=== PATIENT | male | born 1935 | race Caucasian/White ===

== ENCOUNTER 2017-01-14 10:21 | Day surgery (SDC) | payer MEDICARE, OTHER ==
[2012-08-29 05:59] VITALS: BMI 23.8
--- NOTE | ~2017-01-14 | OP ---
PATIENT NAME: OMAR GREENWOOD MEDICAL RECORD: [id number] :37 LOCATION:[facility] ADMISSION DATE: SURGEON: AVRIL CAMACHO DO DATE OF OPERATION: 01/14/2017 PROCEDURE: EGD with biopsies. INDICATIONS FOR PROCEDURE: Epigastric abdominal pain, dysphagia, heartburn, abnormal weight loss. SCOPE: Olympus video gastroscope. MEDICATIONS: Propofol 150 mg IV per anesthesia. ESTIMATED BLOOD LOSS: Less than 2 mL. COMPLICATIONS: None. FINDINGS: Informed consent was given. The patient was made comfortable with the above medication. After reaching an adequate level of sedation by slow IV push, the patient was placed on his left side. The endoscope was then advanced under direct visualization through the mouth to the second portion of the duodenum. The upper, middle, and distal thirds of the esophagus appeared normal. At the GE junction, there was a mild schatzki ring, but the endoscope did pass easily prior to dilation. At the end of the procedure, a CRE artery balloon was passed through the endoscope and used to dilate the ring up to 18 mm diameter. The maneuver was successful. Just below the schatzki ring, there was a hiatal hernia involving the cardia and some LA class A moderate reflux induced esophagitis. Multiple biopsies were taken of this site at the GE junction. The endoscope was advanced through the GE junction into the stomach and retroflexed to view the cardia, where the hiatal hernia was present and visualized from below. This is a small sliding type hiatal hernia. There were multiple benign-appearing fundic gland type polyps in the fundus and body of the stomach. There was some streaky erythema throughout the distal body and antrum of the stomach. Random biopsies were taken to submit for histology and to rule out H. pylori. 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 There was also a single polyp, which was biopsied in the duodenum. The second portion of the duodenum appeared normal. The scope was withdrawn from the patient. The patient tolerated the procedure well and there were no complications. IMPRESSIONS: 1. Discharge home when recovery parameters are met. 2. Continue gastroesophageal reflux disease diet and reflux precautions. 3. Continue current medications, including omeprazole 40 mg daily. 4. Follow up biopsy specimen results. 5. Repeat EGD as needed for dysphagia. 6. Follow up in GI clinic as needed. TRANSINT:[id number] Voice Confirmation ID: [id number] DOCUMENT ID: [id number] OPERATIVE REPORT [id number] OMAR GREENWOOD NATHAN A DO CC: [id number] DICTATION DATE: 01/14/17 1330 DRUM FILLER: 01/14/17 2334 [facility] 01/14/17 [place] [id number]
[2017-01-14 11:32] LABS: BASOPHILS 0.2 % (0-2); EOSINOPHILS 0.8 % (0-7); HEMATOCRIT 44.6 % (42.0-54.0); HEMOGLOBIN 14.8 g/dL (13.5-17.5); IMMATURE GRANULOCYTES 0.5 % (0-5); LYMPHOCYTES 19.8 % (15-50); MCH 32.1 pg (26.0-34.0); MCHC 33.2 g/dL (31.0-37.0); MCV 96.7 fL (80.0-100.0); MONOCYTES 6.4 % (2-11); NEUTROPHILS 72.3 % (40-80); RBC 4.61 10x6/uL (4.20-6.10); RDW 14.1 % (11.5-14.5); WBC 13.3 10x3/uL (4.8-10.8)
[2017-01-14 11:36] LABS: PLATELET COUNT 132 10x3/uL (130-400)
[2017-01-14 11:44] LABS: ANION GAP 13.9 mmol/L (8-16); CALCIUM 8.5 mg/dL (8.5-10.1); CARBON DIOXIDE 25.5 mmol/L (21.0-32.0); CREATININE - SERUM 1.5 mg/dL (0.6-1.3); POTASSIUM - SERUM 4.4 mmol/L (3.5-5.1)
--- NOTE | 2017-01-14 13:16 | NUR ---
BALLOON DILATION 16 TO 18 TO 16 DONE.
--- NOTE | 2017-01-14 19:51 | NUR ---
1430 IV DC WITH CATHER TIP INTACT
== END 2017-01-14 14:45 | disposition home or self-care (01) ==
LOC: D.OPS 10:21
PROVIDERS: Anesthesiology
DX: K22.2 Esophageal obstruction (principal); K44.9 Diaphragmatic hernia without obstruction or gangrene; K21.0 Gastro-esophageal reflux disease with esophagitis; R13.10 Dysphagia, unspecified; R12 Heartburn; Z01.812 Encounter for preprocedural laboratory examination

== ENCOUNTER 2017-07-26 08:28 | Day surgery (SDC) | payer MEDICARE, OTHER ==
[~2017-07-26] VITALS: Ht 188 cm; Wt 81.8 kg
[2017-07-26] MEDS ORDERED: FUROSEMIDE20 MG PO (09:09)
[2017-07-26] MEDS ORDERED: ISOSORBIDE MONO30 M1 PO (09:09)
[2017-07-26] MEDS ORDERED: PLAVIX75 MG PO (09:09)
[2017-07-26] MEDS ORDERED: PEPCID40 MG PO (09:09)
[2017-07-26] MEDS ORDERED: ENTRESTO 49 MG1 EACH PO (09:10)
[2017-07-26] MEDS ORDERED: COREG 3.1253.125 MG PO (09:11)
[2017-07-26] MEDS ORDERED: LANOXIN125 MCG PO ×2 (09:12)
[2017-07-26] MEDS ORDERED: CRESTOR10 MG PO (09:13)
[2017-07-26] MEDS ORDERED: VITAMIN D31000 UNIT PO (09:13)
[2017-07-26] MEDS ORDERED: MELATONIN 3 MG1 TAB PO (09:13)
[2017-07-26] MEDS ORDERED: MULTIPLE VITAMI1 TA1 PO (09:14)
[2017-07-26 09:18] LABS: BASOPHILS 0.1 % (0-2); EOSINOPHILS 0.7 % (0-7); HEMATOCRIT 44.7 % (42.0-54.0); HEMOGLOBIN 15.3 g/dL (13.5-17.5); IMMATURE GRANULOCYTES 0.3 % (0-5); LYMPHOCYTES 21.9 % (15-50); MCH 31.2 pg (26.0-34.0); MCHC 34.2 g/dL (31.0-37.0); MCV 91.2 fL (80.0-100.0); MEAN PLATELET VOLUME 9.8 fL (7.4-10.4); MONOCYTES 8.1 % (2-11); NEUTROPHILS 68.9 % (40-80); PLATELET COUNT 143 10x3/uL (130-400); RDW 13.6 % (11.5-14.5); WBC 8.9 10x3/uL (4.8-10.8)
[2017-07-26 09:21] VITALS: BP 118/75; Ht 188 cm; Wt 81.8 kg
[2017-07-26 09:29] LABS: ANION GAP 3.6 mmol/L (8-16); CALCIUM 8.2 mg/dL (8.5-10.1); CARBON DIOXIDE 24.2 mmol/L (21.0-32.0); CREATININE - SERUM 1.3 mg/dL (0.6-1.3); POTASSIUM - SERUM 3.8 mmol/L (3.5-5.1)
--- NOTE | 2017-07-26 10:39 | NUR ---
1039-ESOPHAGEAL DILITATION TO 18 NAMIBIAN.
--- NOTE | 2017-07-26 11:16 | NUR ---
1100-RECD TO ROOM FROM GI LAB. ALERT. IV PATENT, VOVANGIE IN TO REPORT FINDINGS. 1115-FULL LIQUIDS SERVED
--- NOTE | 2017-07-26 11:52 | NUR ---
1130-UP TO BATHROOM, VOIDS. IV D/C 1140-DISCHARGE INSTRUCTION REVIEWED, GERD DIET HAND OUT GIVEN. PRESCRIPTION FOR OMEPRAZOLE GIVEN. 1145-D/C HOME VIA WHEELCHAIR TO PRIVATE AUTO WITH .
--- NOTE | 2017-08-05 10:48 | OP ---
PATIENT NAME: OMAR GREENWOOD MEDICAL RECORD: [id number] :37 [facility] AD[facility]ION DATE: SURGEON: AVRIL CAMACHO DO DATE OF OPERATION: 07/26/2017 PROCEDURE: EGD with balloon dilation and biopsies. SCOPE: Olympus video gastroscope. MEDICATIONS: Propofol 150 mg IV per anesthesia. ESTIMATED BLOOD LOSS: Minimal. COMPLICATIONS: None. FINDINGS: Informed consent was given. The patient was made comfortable with the above medication. After reaching an adequate level of sedation by slow IV push, the patient was placed on his left side. The endoscope was then advanced under direct visualization through the mouth to the second portion of the duodenum. The upper, middle, and lower thirds of the esophagus appeared normal. Just proximal to the GE junction, there was some minor esophageal stenosis noted. A CRE balloon was used to dilate the area without fluoroscopic guidance or guide wire insertion to 19 mm maximum diameter. The maneuver was successful. At the GE junction, there was some mild evidence of LA class A reflux-induced esophagitis. The endoscope was advanced beyond the GE junction into the stomach and retroflexed to view the cardia, where a hiatal hernia was present. Throughout the entire stomach, there were multiple benign-appearing fundic gland type polyps. There were patchy areas of erythema and granularity within the stomach consistent with possible gastritis. Random biopsies were taken. There was a specific area in the antrum with mucosal pattern. There was a difficult color in the surrounding tissue. This site measured approximately 1 to 1.5 cm x 2 to 3 cm. The area had some heaped up margins surrounding the site. Biopsies were taken of this site specifically to submit for histology. The endoscope was advanced beyond the pylorus into the duodenum where the bulb and second portion of the duodenum appeared normal. The endoscope was then withdrawn from the patient. The patient tolerated the procedure well and there were no complications. IMPRESSION: 1. LA class A reflux-induced esophagitis. 2. Esophageal stenosis, dilated to 19 mm. 3. Sliding type hiatal hernia involving the cardia. 4. Multiple benign appearing fundic gland type gastric polyps. 5. Possible gastritis. 6. Irregular mucosa within the gastric antrum, cold forceps biopsies taken. PLAN AND RECOMMENDATIONS: 1. Discharge home when recovery parameters are met. 2. Follow up biopsy specimen results. 3. GERD diet and reflux precautions. 4. Continue current medications. 5. Restart omeprazole 40 mg daily based on the patient's symptomatology. 6. Repeat EGD as needed for dysphagia or consider barium esophagram and/or manometry study. OPERATIVE REPORT [id number] OMAR GREENWOOD TRANSINT:[id number] Voice Confirmation ID: [id number] DOCUMENT ID: [id number] AVRIL CAMACHO DO at 1048 CC: [id number] DICTATION DATE: 07/26/17 1051 CUSTOMER ACQUISITION MANAGER: 07/26/17 1137 [facility] 07/26/17 [place] [id number] [place] [address]
== END 2017-07-26 11:45 | disposition home or self-care (01) ==
LOC: D.OPS 08:28
PROVIDERS: Anesthesiology
DX: R13.10 Dysphagia, unspecified (principal); R10.13 Epigastric pain; K21.0 Gastro-esophageal reflux disease with esophagitis; K22.2 Esophageal obstruction; K44.9 Diaphragmatic hernia without obstruction or gangrene; K31.7 Polyp of stomach and duodenum; G47.30 Sleep apnea, unspecified; I10 Essential (primary) hypertension; I50.9 Heart failure, unspecified; Z01.812 Encounter for preprocedural laboratory examination

== ENCOUNTER 2017-11-07 05:37 | Inpatient (IN) | payer MEDICARE, OTHER ==
[~2017-11-07] VITALS: Ht 188 cm; Wt 81.6 kg
[~2017-11-07 05:37] MED LIST: COREG 3.1253.125 MG PO; CRESTOR10 MG PO; ENTRESTO 49 MG1 EACH PO; FUROSEMIDE20 MG PO; ISOSORBIDE MONO30 M1 PO; LANOXIN125 MCG PO; MELATONIN 3 MG1 TAB PO; MULTIPLE VITAMI1 TA1 PO; PEPCID40 MG PO; PLAVIX75 MG PO; VITAMIN D31000 UNIT PO
[2017-11-07 06:14] LABS: BASOPHILS 0.1 % (0-2); EOSINOPHILS 0.1 % (0-7); HEMATOCRIT 44.8 % (42.0-54.0); HEMOGLOBIN 15.1 g/dL (13.5-17.5); IMMATURE GRANULOCYTES 0.4 % (0-5); LYMPHOCYTES 7.7 % (15-50); MCH 32.1 pg (26.0-34.0); MCHC 33.7 g/dL (31.0-37.0); MCV 95.1 fL (80.0-100.0); MEAN PLATELET VOLUME 9.9 fL (7.4-10.4); MONOCYTES 9.4 % (2-11); NEUTROPHILS 82.3 % (40-80); PLATELET COUNT 132 10x3/uL (130-400); RBC 4.71 10x6/uL (4.20-6.10); RDW 13.3 % (11.5-14.5); WBC 15.6 10x3/uL (4.8-10.8)
[2017-11-07 06:31] LABS: ANION GAP 12.5 mmol/L (8-16); BILIRUBIN - TOTAL 1.57 mg/dL (0.2-1.3); CALCIUM 7.8 mg/dL (8.5-10.1); CARBON DIOXIDE 25.6 mmol/L (21.0-32.0); CREATININE - SERUM 1.6 mg/dL (0.6-1.3); DIGOXIN 1.01 ng/mL (0.90-2.00); POTASSIUM - SERUM 4.1 mmol/L (3.5-5.1); PROTEIN - SERUM 6.6 g/dL (6.4-8.2)
[2017-11-07 08:35] LABS: APPEARANCE CLEAR (CLEAR); BILIRUBIN NEGATIVE (NEGATIVE); COLOR DK YELLOW (YELLOW); GLUCOSE NEGATIVE (NEGATIVE); KETONE NEGATIVE (NEGATIVE); NITRITE NEGATIVE (NEGATIVE); PROTEIN NEGATIVE (NEGATIVE); SPECIFIC GRAVITY 1.015 (1.005-1.020); UROBILINOGEN NORMAL (NORMAL)
[2017-11-07 08:37] LABS: BACTERIA FEW /hpf (NONE SEEN); MUCUS <1+ /lpf (NONE SEEN)
[2017-11-07 09:47] LABS: WHITE CELLS - URINE 0-5 /hpf (0-5)
[2017-11-07 09:48] LABS: RED CELLS - URINE 0-5 /hpf (0-5)
[2017-11-07] MEDS ORDERED: PAXIL10 MG PO (11:03)
[2017-11-07 11:12] VITALS: BP 115/59; BMI 23.1
[2017-11-07 16:18] VITALS: BP 122/69
[2017-11-07 20:41] VITALS: BP 125/72
[2017-11-08 00:50] VITALS: BP 114/56
[2017-11-08 04:49] VITALS: BP 102/72
[2017-11-08 04:59] LABS: BASOPHILS 0.2 % (0-2); EOSINOPHILS 1.1 % (0-7); HEMATOCRIT 39.3 % (42.0-54.0); HEMOGLOBIN 13.9 g/dL (13.5-17.5); IMMATURE GRANULOCYTES 0.2 % (0-5); LYMPHOCYTES 30.7 % (15-50); MCH 33.2 pg (26.0-34.0); MCHC 35.4 g/dL (31.0-37.0); MCV 93.8 fL (80.0-100.0); MEAN PLATELET VOLUME 10.3 fL (7.4-10.4); MONOCYTES 10.7 % (2-11); NEUTROPHILS 57.1 % (40-80); PLATELET COUNT 129 10x3/uL (130-400); RBC 4.19 10x6/uL (4.20-6.10); RDW 13.3 % (11.5-14.5)
[2017-11-08 05:07] LABS: WBC 5.3 10x3/uL (4.8-10.8)
[2017-11-08 05:11] LABS: INR 1.14 (0.85-1.17); PROTIME 14.2 SECONDS (11.6-15.0)
[2017-11-08 05:14] LABS: ANION GAP 12.9 mmol/L (8-16); CALCIUM 7.5 mg/dL (8.5-10.1); CARBON DIOXIDE 22.6 mmol/L (21.0-32.0); CREATININE - SERUM 1.4 mg/dL (0.6-1.3); POTASSIUM - SERUM 3.5 mmol/L (3.5-5.1)
[2017-11-08 08:19] VITALS: BP 116/71
[2017-11-08 13:21] VITALS: BP 91/54
[2017-11-08 15:14] VITALS: Ht 188 cm; Wt 81.6 kg
[2017-11-08 16:32] VITALS: BP 102/54
[2017-11-08 20:00] VITALS: BP 106/59
[2017-11-09] VITALS: BP 86/54
[2017-11-09 04:00] VITALS: BP 124/66
[2017-11-09 05:30] LABS: BASOPHILS 0 % (0-2); EOSINOPHILS 1.4 % (0-7); HEMATOCRIT 37.2 % (42.0-54.0); HEMOGLOBIN 12.5 g/dL (13.5-17.5); IMMATURE GRANULOCYTES 0.5 % (0-5); LYMPHOCYTES 23.3 % (15-50); MCH 31.1 pg (26.0-34.0); MCHC 33.6 g/dL (31.0-37.0); MCV 92.5 fL (80.0-100.0); MEAN PLATELET VOLUME 10.1 fL (7.4-10.4); MONOCYTES 12.2 % (2-11); NEUTROPHILS 62.6 % (40-80); PLATELET COUNT 139 10x3/uL (130-400); RBC 4.02 10x6/uL (4.20-6.10); RDW 13.2 % (11.5-14.5); WBC 6.5 10x3/uL (4.8-10.8)
[2017-11-09 06:05] LABS: ANION GAP 13.3 mmol/L (8-16); CALCIUM 7.5 mg/dL (8.5-10.1); CARBON DIOXIDE 22.4 mmol/L (21.0-32.0); CREATININE - SERUM 1.3 mg/dL (0.6-1.3); POTASSIUM - SERUM 3.7 mmol/L (3.5-5.1)
[2017-11-09 08:11] VITALS: BP 126/64
[2017-11-09 09:16] LABS: HEPATITIS C ANTIBODY <0.1 (0.0-0.9)
[2017-11-09 16:09] VITALS: BP 122/76
[2017-11-09 20:00] VITALS: BP 149/44
[2017-11-10 04:00] VITALS: BP 149/82
[2017-11-10 05:10] LABS: BASOPHILS 0.1 % (0-2); EOSINOPHILS 1.1 % (0-7); HEMATOCRIT 40.5 % (42.0-54.0); HEMOGLOBIN 13.9 g/dL (13.5-17.5); IMMATURE GRANULOCYTES 0.3 % (0-5); LYMPHOCYTES 23.1 % (15-50); MCH 31.7 pg (26.0-34.0); MCHC 34.3 g/dL (31.0-37.0); MCV 92.5 fL (80.0-100.0); MONOCYTES 9.8 % (2-11); NEUTROPHILS 65.6 % (40-80); PLATELET COUNT 147 10x3/uL (130-400); RBC 4.38 10x6/uL (4.20-6.10); WBC 7.1 10x3/uL (4.8-10.8)
[2017-11-10 05:36] LABS: ALBUMIN 2.7 g/dL (3.4-5.0); ANION GAP 10.3 mmol/L (8-16); BILIRUBIN - TOTAL 0.46 mg/dL (0.2-1.3); CARBON DIOXIDE 26.4 mmol/L (21.0-32.0); CREATININE - SERUM 1.3 mg/dL (0.6-1.3); POTASSIUM - SERUM 3.7 mmol/L (3.5-5.1)
[2017-11-10 08:07] VITALS: BP 144/81
[2017-11-10 15:44] VITALS: BP 136/74
[2017-11-10 21:24] VITALS: BP 149/62
[2017-11-11 01:24] VITALS: BP 136/73
[2017-11-11 04:04] VITALS: BP 153/94
[2017-11-11 04:17] VITALS: BP 153/94
[2017-11-11 06:56] LABS: BASOPHILS 0.1 % (0-2); HEMATOCRIT 41.9 % (42.0-54.0); HEMOGLOBIN 14.7 g/dL (13.5-17.5); IMMATURE GRANULOCYTES 0.3 % (0-5); LYMPHOCYTES 20.7 % (15-50); MCH 32.4 pg (26.0-34.0); MCHC 35.1 g/dL (31.0-37.0); MCV 92.3 fL (80.0-100.0); MONOCYTES 8.3 % (2-11); NEUTROPHILS 69.6 % (40-80); RBC 4.54 10x6/uL (4.20-6.10); RDW 13.1 % (11.5-14.5); WBC 8.7 10x3/uL (4.8-10.8)
[2017-11-11 06:57] LABS: PLATELET COUNT 207 10x3/uL (130-400)
[2017-11-11 07:04] LABS: ANION GAP 12.2 mmol/L (8-16); CALCIUM 7.8 mg/dL (8.5-10.1); CARBON DIOXIDE 27.8 mmol/L (21.0-32.0); CREATININE - SERUM 1.2 mg/dL (0.6-1.3)
[2017-11-11 11:41] VITALS: BP 153/78
[2017-11-11 17:26] VITALS: BP 156/85
[2017-11-11] MEDS ORDERED: FLORAJEN3 CAPS460 MG PO (17:31)
[2017-11-11] MEDS ORDERED: VANCOMYCIN250 MG/51 PO (17:32)
[2017-11-11] MEDS ORDERED: FLAGYL500 MG PO (17:32)
== END 2017-11-11 18:04 | disposition home or self-care (01) | DRG 872 ==
LOC: D.ER 05:37 → D.EDHOLD 09:56 → D.MS 09:56
PROVIDERS: Emergency Medicine; Internal Medicine Gastroenterology; Internal Medicine Nephrology
PROC: 3E0G8GC Introduction of Other Therapeutic Substance into Upper GI, Via Natural or Artificial Opening Endoscopic (ICD-10-PCS; principal; 2017-11-11 14:00)
PROC: 0D748ZZ Dilation of Esophagogastric Junction, Via Natural or Artificial Opening Endoscopic (ICD-10-PCS; 2017-11-11 14:00)
DX: A41.9 Sepsis, unspecified organism (principal); A04.71 Enterocolitis due to Clostridium difficile, recurrent; N17.9 Acute kidney failure, unspecified; E86.0 Dehydration; I10 Essential (primary) hypertension; E80.6 Other disorders of bilirubin metabolism; Z95.810 Presence of automatic (implantable) cardiac defibrillator; K31.7 Polyp of stomach and duodenum; R13.10 Dysphagia, unspecified

== ENCOUNTER 2017-11-26 00:15 | Inpatient (IN) | payer MEDICARE, OTHER ==
[~2017-11-26] VITALS: Ht 188 cm; Wt 77.1 kg
[~2017-11-26 00:15] MED LIST changes: +FLAGYL500 MG PO; +FLORAJEN3 CAPS460 MG PO; +PAXIL10 MG PO; +VANCOMYCIN250 MG/51 PO
[2017-11-26 01:02] LABS: BASOPHILS 0.1 % (0-2); EOSINOPHILS 0.2 % (0-7); HEMATOCRIT 41.5 % (42.0-54.0); HEMOGLOBIN 14.1 g/dL (13.5-17.5); IMMATURE GRANULOCYTES 0.3 % (0-5); LYMPHOCYTES 13.5 % (15-50); MCH 32.2 pg (26.0-34.0); MCV 94.7 fL (80.0-100.0); MEAN PLATELET VOLUME 9.8 fL (7.4-10.4); MONOCYTES 8.6 % (2-11); NEUTROPHILS 77.3 % (40-80); RBC 4.38 10x6/uL (4.20-6.10); RDW 13.2 % (11.5-14.5); WBC 10.1 10x3/uL (4.8-10.8)
[2017-11-26 01:04] LABS: PLATELET COUNT 165 10x3/uL (130-400)
[2017-11-26 01:15] LABS: ALBUMIN 2.8 g/dL (3.4-5.0); ANION GAP 9.5 mmol/L (8-16); BILIRUBIN - TOTAL 0.7 mg/dL (0.2-1.3); CALCIUM 7.9 mg/dL (8.5-10.1); CARBON DIOXIDE 25.4 mmol/L (21.0-32.0); CREATININE - SERUM 1.5 mg/dL (0.6-1.3); POTASSIUM - SERUM 3.9 mmol/L (3.5-5.1); PROTEIN - SERUM 6.3 g/dL (6.4-8.2)
[2017-11-26] MEDS ORDERED: OMEPRAZOLE40 MG PO (03:57)
[2017-11-26] MEDS ORDERED: GLUCOSAMINE & C1 CAP PO (04:16)
[2017-11-26 06:20] LABS: APPEARANCE CLEAR (CLEAR); BACTERIA FEW /hpf (NONE SEEN); BILIRUBIN NEGATIVE (NEGATIVE); COLOR YELLOW (YELLOW); EPITHELIAL CELLS RARE /hpf (0-5); GLUCOSE NEGATIVE (NEGATIVE); KETONE NEGATIVE (NEGATIVE); NITRITE NEGATIVE (NEGATIVE); PROTEIN NEGATIVE (NEGATIVE); RED CELLS - URINE OCC /hpf (0-5); SPECIFIC GRAVITY 1.015 (1.005-1.020); UROBILINOGEN NORMAL (NORMAL); WHITE CELLS - URINE RARE /hpf (0-5)
[2017-11-26 06:32] VITALS: BP 133/76; BMI 21.8
[2017-11-26 08:37] VITALS: BP 108/65
[2017-11-26 12:43] VITALS: BP 113/69
[2017-11-26 14:10] VITALS: Ht 188 cm; Wt 77.1 kg
[2017-11-26 16:34] VITALS: BP 115/63
[2017-11-26 20:08] VITALS: BP 103/59
[2017-11-27 04:36] VITALS: BP 124/87
[2017-11-27 09:09] VITALS: BP 126/75
[2017-11-27 12:30] VITALS: BP 103/55
[2017-11-27 15:58] VITALS: BP 97/56
[2017-11-27 20:00] VITALS: BP 95/53
[2017-11-28] VITALS: BP 106/60
[2017-11-28 04:00] VITALS: BP 122/70
[2017-11-28 08:57] VITALS: BP 125/67
[2017-11-28 12:22] VITALS: BP 130/70
[2017-11-28] MEDS ORDERED: FLAGYL500 MG PO (14:19)
== END 2017-11-28 17:10 | disposition home or self-care (01) | DRG 372 ==
LOC: D.ER 00:15 → D.EDHOLD 01:50 → D.MS 01:50
PROVIDERS: Emergency Medicine
DX: A04.71 Enterocolitis due to Clostridium difficile, recurrent (principal); N17.9 Acute kidney failure, unspecified; I10 Essential (primary) hypertension; I25.10 Atherosclerotic heart disease of native coronary artery without angina pectoris; I71.4 Abdominal aortic aneurysm, without rupture; Z95.810 Presence of automatic (implantable) cardiac defibrillator

== ENCOUNTER 2017-12-02 11:20 | Day surgery (SDC) | payer MEDICARE, OTHER ==
[~2017-12-02] VITALS: Ht 188 cm; Wt 76.4 kg
--- NOTE | ~2017-12-02 | OP ---
PATIENT NAME: OMAR GREENWOOD MEDICAL RECORD: [id number] :37 [facility] AD[facility] DATE: SURGEON: AVRIL CAMACHO DO DATE OF OPERATION: 12/02/2017 PROCEDURE: EGD with enteroscopy and fecal microbiota transplant. INDICATIONS FOR PROCEDURE: Recurrent C. difficile infection. SCOPE: Doutor Recomenda video gastroscope. MEDICATIONS: Propofol 150 mg IV per anesthesia. ESTIMATED BLOOD LOSS: None. COMPLICATIONS: None. FINDINGS: Informed consent was given. The patient was made comfortable with the above medication. After reaching an adequate level of sedation by slow IV push, the patient was placed on his left side. The endoscope was then advanced under direct visualization through the mouth down to the proximal jejunum. Once the scope was at its maximal extent of advancement, 60 mL of OpenBiome stool was instilled through the endoscope into the small bowel. This was followed by approximately 100 mL of normal saline to clear the working channel of the endoscope of the stool. The endoscope was then withdrawn from the patient. The patient tolerated the procedure well and there were no complications. IMPRESSION: Recurrent Clostridium difficile infection, status post EGD with fecal microbiota transplant. PLAN AND RECOMMENDATIONS: 1. Discharge home when recovery parameters are met. 2. Continue current diet. 3. Continue current medications including Dificid until completed. 4. Follow up in GI clinic in a couple of months or sooner if needed to make sure symptoms have resolved and there is no longer signs of infection or colitis. TRANSINT:[id number] Voice Confirmation ID: [id number] DOCUMENT ID: [id number] AVRIL CAMACHO DO at 0911 CC: [id number] DICTATION DATE: 12/02/17 1511 BINDING FOLDER MACHINE: 12/02/17 1546 [facility] 12/02/17 [place] [address]
[~2017-12-02 11:20] MED LIST changes: +GLUCOSAMINE & C1 CAP PO; +OMEPRAZOLE40 MG PO
[2017-12-02 12:22] LABS: BASOPHILS 0.1 % (0-2); EOSINOPHILS 1.2 % (0-7); HEMATOCRIT 42.2 % (42.0-54.0); HEMOGLOBIN 14.4 g/dL (13.5-17.5); IMMATURE GRANULOCYTES 0.5 % (0-5); LYMPHOCYTES 28.5 % (15-50); MCH 31.8 pg (26.0-34.0); MCHC 34.1 g/dL (31.0-37.0); MCV 93.2 fL (80.0-100.0); MONOCYTES 7.6 % (2-11); NEUTROPHILS 62.1 % (40-80); PLATELET COUNT 169 10x3/uL (130-400); RBC 4.53 10x6/uL (4.20-6.10); RDW 13.1 % (11.5-14.5); WBC 8.2 10x3/uL (4.8-10.8)
[2017-12-02 12:32] LABS: ANION GAP 15.9 mmol/L (8-16); CALCIUM 8.2 mg/dL (8.5-10.1); CARBON DIOXIDE 24.9 mmol/L (21.0-32.0); CREATININE - SERUM 1.2 mg/dL (0.6-1.3); POTASSIUM - SERUM 3.8 mmol/L (3.5-5.1)
[2017-12-02 13:23] VITALS: BP 120/70; Ht 188 cm; Wt 76.4 kg
== END 2017-12-02 16:05 | disposition home or self-care (01) ==
LOC: D.OPS 11:20
PROVIDERS: Anesthesiology
DX: A04.71 Enterocolitis due to Clostridium difficile, recurrent (principal); Z01.812 Encounter for preprocedural laboratory examination

== ENCOUNTER 2017-12-05 14:20 | Inpatient (IN) | payer MEDICARE, OTHER ==
[~2017-12-05] VITALS: Ht 188 cm; Wt 75.9 kg
[2017-12-05] MEDS ORDERED: DIFICID PO (15:36)
[2017-12-05 17:16] VITALS: BP 123/70; BMI 21.6
[2017-12-05 20:00] VITALS: BP 100/60
[2017-12-06] VITALS: BP 100/64
[2017-12-06 04:00] VITALS: BP 124/74
[2017-12-06 06:19] LABS: BASOPHILS 0.2 % (0-2); EOSINOPHILS 1.3 % (0-7); HEMATOCRIT 41.7 % (42.0-54.0); HEMOGLOBIN 14.3 g/dL (13.5-17.5); IMMATURE GRANULOCYTES 0.3 % (0-5); LYMPHOCYTES 21.6 % (15-50); MCH 31.2 pg (26.0-34.0); MCHC 34.3 g/dL (31.0-37.0); MCV 90.8 fL (80.0-100.0); MEAN PLATELET VOLUME 9.9 fL (7.4-10.4); MONOCYTES 6.8 % (2-11); NEUTROPHILS 69.8 % (40-80); PLATELET COUNT 162 10x3/uL (130-400); RBC 4.59 10x6/uL (4.20-6.10); RDW 12.9 % (11.5-14.5); WBC 11.1 10x3/uL (4.8-10.8)
[2017-12-06 06:57] LABS: ALBUMIN 2.5 g/dL (3.4-5.0); ANION GAP 13.5 mmol/L (8-16); BILIRUBIN - TOTAL 0.6 mg/dL (0.2-1.3); CALCIUM 7.7 mg/dL (8.5-10.1); CARBON DIOXIDE 26.1 mmol/L (21.0-32.0); CREATININE - SERUM 1.2 mg/dL (0.6-1.3); POTASSIUM - SERUM 3.6 mmol/L (3.5-5.1)
[2017-12-06 09:17] VITALS: BP 137/74
[2017-12-06 10:44] VITALS: BP 135/78
[2017-12-06 14:13] VITALS: Ht 188 cm; Wt 75.9 kg
[2017-12-06 15:17] VITALS: BP 136/71
[2017-12-06 20:49] VITALS: BP 97/65
[2017-12-07 01:03] VITALS: BP 133/76
[2017-12-07 05:01] VITALS: BP 128/77
[2017-12-07 06:53] LABS: BASOPHILS 0.2 % (0-2); HEMATOCRIT 42.1 % (42.0-54.0); HEMOGLOBIN 14.6 g/dL (13.5-17.5); IMMATURE GRANULOCYTES 0.2 % (0-5); LYMPHOCYTES 18.5 % (15-50); MCH 31.7 pg (26.0-34.0); MCHC 34.7 g/dL (31.0-37.0); MCV 91.3 fL (80.0-100.0); MEAN PLATELET VOLUME 9.8 fL (7.4-10.4); MONOCYTES 8.1 % (2-11); PLATELET COUNT 156 10x3/uL (130-400); RBC 4.61 10x6/uL (4.20-6.10); RDW 12.9 % (11.5-14.5); WBC 12.7 10x3/uL (4.8-10.8)
[2017-12-07 07:30] LABS: ALBUMIN 2.6 g/dL (3.4-5.0); ANION GAP 12.9 mmol/L (8-16); BILIRUBIN - TOTAL 0.5 mg/dL (0.2-1.3); CALCIUM 8.2 mg/dL (8.5-10.1); CARBON DIOXIDE 25.6 mmol/L (21.0-32.0); CREATININE - SERUM 1.2 mg/dL (0.6-1.3); POTASSIUM - SERUM 3.5 mmol/L (3.5-5.1); PROTEIN - SERUM 6.2 g/dL (6.4-8.2)
[2017-12-07 07:46] VITALS: BP 132/68
[2017-12-07 10:36] VITALS: BP 123/71
[2017-12-07 16:15] VITALS: BP 120/68
[2017-12-07 20:00] VITALS: BP 120/66
[2017-12-08] VITALS: BP 94/62
[2017-12-08 04:00] VITALS: BP 137/72
[2017-12-08 06:05] LABS: BASOPHILS 0.1 % (0-2); EOSINOPHILS 1.6 % (0-7); IMMATURE GRANULOCYTES 0.2 % (0-5); LYMPHOCYTES 25.9 % (15-50); MCH 31.5 pg (26.0-34.0); MCHC 34.1 g/dL (31.0-37.0); MCV 92.1 fL (80.0-100.0); MEAN PLATELET VOLUME 10.1 fL (7.4-10.4); MONOCYTES 7.1 % (2-11); NEUTROPHILS 65.1 % (40-80); PLATELET COUNT 134 10x3/uL (130-400); RBC 4.45 10x6/uL (4.20-6.10); RDW 12.9 % (11.5-14.5)
[2017-12-08 06:07] LABS: WBC 8.9 10x3/uL (4.8-10.8)
[2017-12-08 06:09] LABS: ALBUMIN 2.5 g/dL (3.4-5.0); ANION GAP 13.3 mmol/L (8-16); BILIRUBIN - TOTAL 0.4 mg/dL (0.2-1.3); CALCIUM 7.9 mg/dL (8.5-10.1); CARBON DIOXIDE 23.5 mmol/L (21.0-32.0); CREATININE - SERUM 1.2 mg/dL (0.6-1.3); POTASSIUM - SERUM 3.8 mmol/L (3.5-5.1); PROTEIN - SERUM 5.5 g/dL (6.4-8.2)
[2017-12-08 08:53] VITALS: BP 141/72
[2017-12-08 12:36] VITALS: BP 113/66
[2017-12-08 15:38] VITALS: BP 143/79
[2017-12-08 21:12] VITALS: BP 154/87
[2017-12-09 01:46] VITALS: BP 145/82
[2017-12-09 05:05] VITALS: BP 146/85
[2017-12-09 06:29] LABS: BASOPHILS 0.1 % (0-2); EOSINOPHILS 2.1 % (0-7); IMMATURE GRANULOCYTES 0.3 % (0-5); LYMPHOCYTES 30.9 % (15-50); MCH 31.2 pg (26.0-34.0); MCHC 34.1 g/dL (31.0-37.0); MCV 91.5 fL (80.0-100.0); MEAN PLATELET VOLUME 9.9 fL (7.4-10.4); MONOCYTES 9.2 % (2-11); NEUTROPHILS 57.4 % (40-80); PLATELET COUNT 157 10x3/uL (130-400); RBC 4.81 10x6/uL (4.20-6.10); RDW 12.7 % (11.5-14.5); WBC 7.9 10x3/uL (4.8-10.8)
[2017-12-09 06:53] LABS: ALBUMIN 2.6 g/dL (3.4-5.0); ANION GAP 16.2 mmol/L (8-16); BILIRUBIN - TOTAL 0.55 mg/dL (0.2-1.3); CALCIUM 8.2 mg/dL (8.5-10.1); CARBON DIOXIDE 21.6 mmol/L (21.0-32.0); CREATININE - SERUM 1.1 mg/dL (0.6-1.3); POTASSIUM - SERUM 3.8 mmol/L (3.5-5.1); PROTEIN - SERUM 5.7 g/dL (6.4-8.2)
[2017-12-09 08:23] VITALS: BP 157/83
[2017-12-09 11:48] VITALS: BP 118/69
[2017-12-13 07:10] LABS: OVA + PARASITE EXAM Final report (())
== END 2017-12-09 17:12 | disposition home or self-care (01) | DRG 373 ==
LOC: D.SDCHOLD 14:20 → D.M2 14:44
PROVIDERS: Internal Medicine Gastroenterology; Internal Medicine Nephrology
PROC: 0DBE8ZX Excision of Large Intestine, Via Natural or Artificial Opening Endoscopic, Diagnostic (ICD-10-PCS; 2017-12-09)
PROC: 0DBL8ZX Excision of Transverse Colon, Via Natural or Artificial Opening Endoscopic, Diagnostic (ICD-10-PCS; 2017-12-09)
PROC: 0DBN8ZX Excision of Sigmoid Colon, Via Natural or Artificial Opening Endoscopic, Diagnostic (ICD-10-PCS; 2017-12-09)
PROC: 0DBM8ZX Excision of Descending Colon, Via Natural or Artificial Opening Endoscopic, Diagnostic (ICD-10-PCS; 2017-12-09)
PROC: 0DBH8ZX Excision of Cecum, Via Natural or Artificial Opening Endoscopic, Diagnostic (ICD-10-PCS; 2017-12-09)
PROC: 0DBK8ZX Excision of Ascending Colon, Via Natural or Artificial Opening Endoscopic, Diagnostic (ICD-10-PCS; principal; 2017-12-09 07:30)
DX: A04.71 Enterocolitis due to Clostridium difficile, recurrent (principal); I10 Essential (primary) hypertension; Z86.73 Personal history of transient ischemic attack (TIA), and cerebral infarction without residual deficits; Z95.810 Presence of automatic (implantable) cardiac defibrillator; K21.9 Gastro-esophageal reflux disease without esophagitis; F32.9 Major depressive disorder, single episode, unspecified; F41.9 Anxiety disorder, unspecified

== ENCOUNTER 2017-12-10 14:48 | Inpatient (IN) | payer MEDICARE, OTHER ==
[~2017-12-10] VITALS: Ht 188 cm; Wt 76.2 kg
[~2017-12-10 14:48] MED LIST changes: +DIFICID PO
[2017-12-10 15:39] LABS: BASOPHILS 0.1 % (0-2); EOSINOPHILS 1.2 % (0-7); HEMATOCRIT 43.7 % (42.0-54.0); HEMOGLOBIN 14.7 g/dL (13.5-17.5); IMMATURE GRANULOCYTES 0.3 % (0-5); LYMPHOCYTES 26.5 % (15-50); MCH 31.1 pg (26.0-34.0); MCHC 33.6 g/dL (31.0-37.0); MCV 92.4 fL (80.0-100.0); MEAN PLATELET VOLUME 9.9 fL (7.4-10.4); MONOCYTES 9.7 % (2-11); NEUTROPHILS 62.2 % (40-80); PLATELET COUNT 152 10x3/uL (130-400); RBC 4.73 10x6/uL (4.20-6.10); RDW 12.9 % (11.5-14.5); WBC 7.6 10x3/uL (4.8-10.8)
[2017-12-10 15:52] LABS: ANION GAP 11.8 mmol/L (8-16); BILIRUBIN - TOTAL 0.6 mg/dL (0.2-1.3); CARBON DIOXIDE 25.9 mmol/L (21.0-32.0); POTASSIUM - SERUM 3.7 mmol/L (3.5-5.1); PROTEIN - SERUM 6.2 g/dL (6.4-8.2)
[2017-12-10 15:55] LABS: CREATININE - SERUM 1.5 mg/dL (0.6-1.3)
[2017-12-10 17:07] LABS: APPEARANCE CLEAR (CLEAR); BILIRUBIN NEGATIVE (NEGATIVE); COLOR YELLOW (YELLOW); GLUCOSE NEGATIVE (NEGATIVE); KETONE NEGATIVE (NEGATIVE); NITRITE NEGATIVE (NEGATIVE); PROTEIN NEGATIVE (NEGATIVE); SPECIFIC GRAVITY 1.015 (1.005-1.020); UROBILINOGEN NORMAL (NORMAL)
[2017-12-10 23:29] VITALS: BP 133/68
[2017-12-11 02:39] VITALS: BP 168/79; BMI 21.6
[2017-12-11 04:22] VITALS: BP 122/71
[2017-12-11 05:28] LABS: BASOPHILS 0.1 % (0-2); EOSINOPHILS 1.9 % (0-7); HEMATOCRIT 41.8 % (42.0-54.0); HEMOGLOBIN 14.4 g/dL (13.5-17.5); IMMATURE GRANULOCYTES 0.2 % (0-5); LYMPHOCYTES 21.1 % (15-50); MCH 31.6 pg (26.0-34.0); MCHC 34.4 g/dL (31.0-37.0); MCV 91.9 fL (80.0-100.0); MONOCYTES 8.9 % (2-11); NEUTROPHILS 67.8 % (40-80); PLATELET COUNT 140 10x3/uL (130-400); RBC 4.55 10x6/uL (4.20-6.10); RDW 12.6 % (11.5-14.5)
[2017-12-11 05:36] LABS: WBC 9.7 10x3/uL (4.8-10.8)
[2017-12-11 06:11] LABS: ALBUMIN 2.4 g/dL (3.4-5.0); ANION GAP 12.5 mmol/L (8-16); BILIRUBIN - TOTAL 0.6 mg/dL (0.2-1.3); CALCIUM 7.9 mg/dL (8.5-10.1); CARBON DIOXIDE 22.9 mmol/L (21.0-32.0); CREATININE - SERUM 1.2 mg/dL (0.6-1.3); POTASSIUM - SERUM 3.4 mmol/L (3.5-5.1); PROTEIN - SERUM 5.9 g/dL (6.4-8.2)
[2017-12-11 09:30] VITALS: BP 146/77
[2017-12-11 13:40] VITALS: BP 127/88
[2017-12-11 14:27] VITALS: Ht 188 cm; Wt 76.2 kg
[2017-12-11 16:00] VITALS: BP 148/89
[2017-12-11 20:00] VITALS: BP 116/63
[2017-12-12 05:20] LABS: BASOPHILS 0.3 % (0-2); EOSINOPHILS 1.9 % (0-7); HEMATOCRIT 40.5 % (42.0-54.0); HEMOGLOBIN 13.7 g/dL (13.5-17.5); IMMATURE GRANULOCYTES 0.1 % (0-5); LYMPHOCYTES 25.8 % (15-50); MCH 30.9 pg (26.0-34.0); MCHC 33.8 g/dL (31.0-37.0); MCV 91.4 fL (80.0-100.0); MEAN PLATELET VOLUME 10.2 fL (7.4-10.4); MONOCYTES 9.1 % (2-11); NEUTROPHILS 62.8 % (40-80); PLATELET COUNT 131 10x3/uL (130-400); RBC 4.43 10x6/uL (4.20-6.10); RDW 12.6 % (11.5-14.5); WBC 7.9 10x3/uL (4.8-10.8)
[2017-12-12 05:50] LABS: ALBUMIN 2.4 g/dL (3.4-5.0); ANION GAP 13.6 mmol/L (8-16); BILIRUBIN - TOTAL 0.4 mg/dL (0.2-1.3); CALCIUM 7.7 mg/dL (8.5-10.1); CARBON DIOXIDE 22.1 mmol/L (21.0-32.0); CREATININE - SERUM 1.1 mg/dL (0.6-1.3); POTASSIUM - SERUM 3.7 mmol/L (3.5-5.1); PROTEIN - SERUM 5.4 g/dL (6.4-8.2)
[2017-12-12 09:27] VITALS: BP 150/76
[2017-12-12 13:40] VITALS: BP 113/69
[2017-12-12 20:00] VITALS: BP 124/71
[2017-12-13 04:00] VITALS: BP 144/78
[2017-12-13 05:42] LABS: BASOPHILS 0.1 % (0-2); EOSINOPHILS 1.6 % (0-7); HEMATOCRIT 38.6 % (42.0-54.0); HEMOGLOBIN 13.5 g/dL (13.5-17.5); IMMATURE GRANULOCYTES 0.1 % (0-5); LYMPHOCYTES 22.3 % (15-50); MCH 31.3 pg (26.0-34.0); MCV 89.6 fL (80.0-100.0); MEAN PLATELET VOLUME 10.5 fL (7.4-10.4); MONOCYTES 8.4 % (2-11); NEUTROPHILS 67.5 % (40-80); PLATELET COUNT 150 10x3/uL (130-400); RBC 4.31 10x6/uL (4.20-6.10); RDW 12.5 % (11.5-14.5); WBC 8.3 10x3/uL (4.8-10.8)
[2017-12-13 06:13] LABS: ALBUMIN 2.3 g/dL (3.4-5.0); ALKALINE PHOSPHATASE 62 U/L (46-116); ALT (SGPT) 27 U/L (10-68); CALC OSMOLALITY 277 mosm/kg (275-300); CALCIUM 7.9 mg/dL (8.5-10.1); CARBON DIOXIDE 19.3 mmol/L (21.0-32.0); CHLORIDE - SERUM 110 mmol/L (98-107); GLUCOSE 104 mg/dL (74-106); POTASSIUM - SERUM 3.6 mmol/L (3.5-5.1); PROTEIN - SERUM 5.8 g/dL (6.4-8.2); SODIUM 140 mmol/L (136-145); UREA NITROGEN 10 mg/dL (7-18); eGFR NON AFRICAN AMERICAN 76 mL/min (90-120)
[2017-12-13 09:23] VITALS: BP 138/84
[2017-12-13 14:42] VITALS: BP 117/72
[2017-12-13 17:59] VITALS: BP 137/84
[2017-12-13 21:36] VITALS: BP 129/79
[2017-12-14 04:54] VITALS: BP 132/81
[2017-12-14 06:08] LABS: BASOPHILS 0.2 % (0-2); EOSINOPHILS 1.3 % (0-7); HEMATOCRIT 40.1 % (42.0-54.0); HEMOGLOBIN 13.9 g/dL (13.5-17.5); IMMATURE GRANULOCYTES 0.2 % (0-5); LYMPHOCYTES 17.9 % (15-50); MCH 31.2 pg (26.0-34.0); MCHC 34.7 g/dL (31.0-37.0); MCV 89.9 fL (80.0-100.0); MEAN PLATELET VOLUME 10.3 fL (7.4-10.4); MONOCYTES 8.3 % (2-11); NEUTROPHILS 72.1 % (40-80); PLATELET COUNT 143 10x3/uL (130-400); RBC 4.46 10x6/uL (4.20-6.10); RDW 12.5 % (11.5-14.5); WBC 9.3 10x3/uL (4.8-10.8)
[2017-12-14 06:56] LABS: ALBUMIN 2.3 g/dL (3.4-5.0); ALKALINE PHOSPHATASE 55 U/L (46-116); ALT (SGPT) 29 U/L (10-68); BILIRUBIN - TOTAL 0.43 mg/dL (0.2-1.3); CALC OSMOLALITY 278 mosm/kg (275-300); CALCIUM 7.8 mg/dL (8.5-10.1); CHLORIDE - SERUM 108 mmol/L (98-107); GLUCOSE 108 mg/dL (74-106); POTASSIUM - SERUM 3.2 mmol/L (3.5-5.1); PROTEIN - SERUM 5.8 g/dL (6.4-8.2); SODIUM 140 mmol/L (136-145); UREA NITROGEN 10 mg/dL (7-18); eGFR NON AFRICAN AMERICAN 76 mL/min (90-120)
[2017-12-14 08:14] VITALS: BP 145/77
[2017-12-14 12:39] VITALS: BP 125/62
[2017-12-14 16:15] VITALS: BP 122/64; BP 144/49
[2017-12-14 20:06] VITALS: BP 122/73
[2017-12-15 04:30] VITALS: BP 144/64
[2017-12-15 05:58] LABS: BASOPHILS 0.1 % (0-2); EOSINOPHILS 1.3 % (0-7); HEMATOCRIT 39.8 % (42.0-54.0); HEMOGLOBIN 13.9 g/dL (13.5-17.5); IMMATURE GRANULOCYTES 0.2 % (0-5); LYMPHOCYTES 20.9 % (15-50); MCH 31.2 pg (26.0-34.0); MCHC 34.9 g/dL (31.0-37.0); MCV 89.2 fL (80.0-100.0); MEAN PLATELET VOLUME 10.3 fL (7.4-10.4); MONOCYTES 9.4 % (2-11); NEUTROPHILS 68.1 % (40-80); PLATELET COUNT 151 10x3/uL (130-400); RBC 4.46 10x6/uL (4.20-6.10); RDW 12.5 % (11.5-14.5); WBC 8.6 10x3/uL (4.8-10.8)
[2017-12-15 06:10] LABS: ALBUMIN 2.3 g/dL (3.4-5.0); ALKALINE PHOSPHATASE 64 U/L (46-116); ALT (SGPT) 29 U/L (10-68); CALC OSMOLALITY 278 mosm/kg (275-300); CALCIUM 7.9 mg/dL (8.5-10.1); CHLORIDE - SERUM 108 mmol/L (98-107); GLUCOSE 110 mg/dL (74-106); POTASSIUM - SERUM 3.3 mmol/L (3.5-5.1); PROTEIN - SERUM 5.9 g/dL (6.4-8.2); SODIUM 140 mmol/L (136-145); UREA NITROGEN 10 mg/dL (7-18); eGFR NON AFRICAN AMERICAN 76 mL/min (90-120)
[2017-12-15 13:32] VITALS: BP 144/78
[2017-12-15 18:59] VITALS: BP 147/66
[2017-12-15 20:07] VITALS: BP 125/73
[2017-12-16 04:25] VITALS: BP 145/71
[2017-12-16 08:59] VITALS: BP 134/76
[2017-12-16 12:48] VITALS: BP 111/59
[2017-12-16 16:15] VITALS: BP 105/63
[2017-12-16] MEDS ORDERED: LANOXIN125 MCG PO (16:41)
[2017-12-16 19:56] VITALS: BP 125/72
[2017-12-17 04:30] VITALS: BP 148/73
[2017-12-17 09:52] VITALS: BP 130/71
== END 2017-12-17 14:03 | disposition home or self-care (01) | DRG 372 ==
LOC: D.ER 14:48 → D.MS 16:47 → D.EDHOLD 16:47 → D.MS 18:14
PROVIDERS: Family Medicine; Internal Medicine Gastroenterology; Physician Assistant Medical
PROC: 0DB68ZX Excision of Stomach, Via Natural or Artificial Opening Endoscopic, Diagnostic (ICD-10-PCS; 2017-12-15)
PROC: 3E0G8GC Introduction of Other Therapeutic Substance into Upper GI, Via Natural or Artificial Opening Endoscopic (ICD-10-PCS; 2017-12-15)
PROC: 3E0H8GC Introduction of Other Therapeutic Substance into Lower GI, Via Natural or Artificial Opening Endoscopic (ICD-10-PCS; principal; 2017-12-15 16:00)
PROC: 0DB98ZX Excision of Duodenum, Via Natural or Artificial Opening Endoscopic, Diagnostic (ICD-10-PCS; 2017-12-15 16:00)
DX: A04.71 Enterocolitis due to Clostridium difficile, recurrent (principal); N17.9 Acute kidney failure, unspecified; I10 Essential (primary) hypertension; I25.10 Atherosclerotic heart disease of native coronary artery without angina pectoris; F41.8 Other specified anxiety disorders; G47.33 Obstructive sleep apnea (adult) (pediatric); F51.9 Sleep disorder not due to a substance or known physiological condition, unspecified; Z95.810 Presence of automatic (implantable) cardiac defibrillator; I71.4 Abdominal aortic aneurysm, without rupture

== ENCOUNTER 2020-04-11 09:08 | Inpatient (IN) | payer MEDICARE, OTHER ==
[2020-04-11] VITALS (9 sets, daily range): BP systolic 106–125; BP diastolic 51–65; BMI 21.8
[~2020-04-11] VITALS: Ht 188 cm; Wt 77.1 kg
[2020-04-11 09:52] LABS: BASOPHILS 0.2 % (0-2); EOSINOPHILS 0.4 % (0-7); HEMATOCRIT 47.5 % (42.0-54.0); HEMOGLOBIN 16.2 g/dL (13.5-17.5); IMMATURE GRANULOCYTES 0.3 % (0-5); MCH 30.7 pg (26.0-34.0); MCHC 34.1 g/dL (31.0-37.0); MCV 90.1 fL (80.0-100.0); MEAN PLATELET VOLUME 10.1 fL (7.4-10.4); MONOCYTES 10.4 % (2-11); NEUTROPHILS 70.7 % (40-80); PLATELET COUNT 148 10x3/uL (130-400); RBC 5.27 10x6/uL (4.20-6.10); RDW 13.5 % (11.5-14.5); WBC 10.2 10x3/uL (4.8-10.8)
[2020-04-11 09:54] LABS: CALC OSMOLALITY 279 mosm/kg (275-300); CALCIUM 8.6 mg/dL (8.5-10.1); CARBON DIOXIDE 20.4 mmol/L (21.0-32.0); CHLORIDE - SERUM 106 mmol/L (98-107); CREATININE - SERUM 1.7 mg/dL (0.6-1.3); GLUCOSE 130 mg/dL (74-106); POTASSIUM - SERUM 3.8 mmol/L (3.5-5.1); SODIUM 136 mmol/L (136-145); UREA NITROGEN 29 mg/dL (7-18); eGFR NON AFRICAN AMERICAN 41 mL/min (90-120)
[2020-04-11 10:08] LABS: ALBUMIN 3.4 g/dL (3.4-5.0); ALKALINE PHOSPHATASE 126 U/L (30-120); ALT (SGPT) 102 U/L (10-68); AMYLASE - SERUM 68 U/L (25-115); BILIRUBIN - TOTAL 1.15 mg/dL (0.2-1.3); LIPASE 135 U/L (73-393); PROTEIN - SERUM 7.5 g/dL (6.4-8.2); TROPONIN-I < 0.017 ng/mL (0.000-0.060)
[2020-04-11 11:04] LABS: KETONE NEGATIVE (NEGATIVE); NITRITE NEGATIVE (NEGATIVE)
[2020-04-11 11:05] LABS: BILIRUBIN NEGATIVE (NEGATIVE); UROBILINOGEN NORMAL (NORMAL)
[2020-04-11 11:08] LABS: WHITE CELLS - URINE 0-5 /hpf (0-5)
[2020-04-11 11:09] LABS: BACTERIA FEW /hpf (NONE SEEN)
[2020-04-11] MEDS ORDERED: LANOXIN125 MCG PO (20:13)
[2020-04-11] MEDS ORDERED: CYMBALTA60 MG PO (20:14)
[2020-04-11] MEDS ORDERED: FAMOTIDINE10 MG PO (20:15)
[2020-04-11] MEDS ORDERED: VASCEPA1 GM PO (20:15)
[2020-04-11] MEDS ORDERED: PROBIOTIC250 MG PO (20:16)
[2020-04-11] MEDS ORDERED: VITAMIN B-121000 MCG PO (20:17)
[2020-04-11] MEDS ORDERED: [UNRECOGNIZED DRUG - OTHER] PO (20:23)
[2020-04-12 04:00] VITALS: BP 144/58
--- NOTE | 2020-04-12 04:57 | NUR ---
ASLEEP MOST OF THE NIGHT EXCEPT WHEN HE HAS A BM. HE WAS HAD 3 SO FAR TONIGHT. THE FIRST STOOL GAVE US A SAMPLE TO TURN IN TO THE LAB TO [facility] FOR TESTS THE DOCTOR HAD ORDERED. HE HAS DIARRHEA AND IS WEARING A BRIEF BUT STILL NEEDS THE BED CHANGED EACH TIME. HE HAS A CAREGIVER WHO HAS REMAINED WITH HIM ALL NIGHT.
--- NOTE | 2020-04-12 08:00 | NUR ---
WAS INFORMED BY CASE MANAGEMENT THAT PT HAD CALLED AND THAT SHE WANTED HER TO HAVE A NEW NURSE D/T HER CALLLING AND THE NURSE WAS UNAVAILABLE TO SPEAK TO HER AT THAT TIME. THE NURS HAS SPOKE TO AT 0750 AND EXPLAINED TO HER THAT SHE IN THE MIDDLE SO SOMETHING AT THIS TIME AND THAT SHE WOULD HAVE TO GIVEN HER A CALL BACK AND PT WAS VOICED UNDERSTANDING TO THIS NURSE.
--- NOTE | 2020-04-12 08:15 | NUR ---
WAS TOLD BY NURSE THAT PATIENTS DOESNT WANT COATING AND BAKING OPERATOR TO BE HER HUSBANDS NURSE BECAUSE SHE DID NOT ANSWER THE PHONE WHEN SHE CALLED UP HERE BECAUSE SHE WAS JUST BACK FROM TAKING A PATIENT TO DIALYSIS AND TRYING TO HELP ANOTHER FAMILY MEMBER THAT WAS UP HERE ASKING HER FOR IMFORMATION ON A PATIENT AT THIS TIME. SHE ASKED FOR THE PARTS COUNTER CLERK TO TAKE A MESSAGE AND SHE WOULD CALL THE PATIENTS BACK. I WENT TO THE PATIENTS ROOM TO ASK THE PATIENT IF HE WAS BEING TAKEN CARE OF BY CATE OR IF HE THOUGHT HE WANTED A DIFFERENT NURSE. HE SAID NO HE THOUGHT CATE WAS DOING OKAY AND HE DIDNT HAVE ANY PROBLEMS WITH HER. SITTER AT BEDSIDE AT THIS TIME. STATED THE WAS UPSET BECAUSE WHEN CATE CALLED HER BACK SHE SAID SHE WAS ON THE PHONE WITH SOMEONE ELSE AND SHE ANSWERED AND TOLD CATE THAT AND CATE SAID THAT IS FINE JUST TO CALL HER BACK WHEN SHE CAN AND IF SHE IS UNABLE TO GET TO THE PHONE AT THAT TIME THEN SHE WOULD GET BACK TO HER AGAIN. EXPLAINED TO SITTER THAT UNLESS CATE WAS NOT TAKING CARE OF THE PATIENT AND THERE WAS A PROBLEM WITH THE PATIENT THEN I WILL CHANGE THE NURSE, BUT IF THE PATIENT DOESNT HAVE ANY COMPLAINTS AND IS BEING TAKEN CARE OF THEN THERE IS NO REASON TO CHANGE THE NURSE. EXPLAINED IF THERE IS ANY FURTHER ISSUES TO LET ME KNOW AND I WOULD CHANGE THE NURSE IF NEEDED. VERBALIZED UNDERSTANDING.
[2020-04-12 08:50] LABS: BASOPHILS 0.1 % (0-2); EOSINOPHILS 0.3 % (0-7); HEMATOCRIT 44.3 % (42.0-54.0); HEMOGLOBIN 15.3 g/dL (13.5-17.5); IMMATURE GRANULOCYTES 0.3 % (0-5); LYMPHOCYTES 16.4 % (15-50); MCHC 34.5 g/dL (31.0-37.0); MCV 89.9 fL (80.0-100.0); MEAN PLATELET VOLUME 10.3 fL (7.4-10.4); MONOCYTES 12.7 % (2-11); NEUTROPHILS 70.2 % (40-80); PLATELET COUNT 140 10x3/uL (130-400); RBC 4.93 10x6/uL (4.20-6.10); RDW 13.4 % (11.5-14.5); WBC 9.1 10x3/uL (4.8-10.8)
[2020-04-12 08:51] LABS: ALBUMIN 2.8 g/dL (3.4-5.0); ANION GAP 13.2 mmol/L (8-16); BILIRUBIN - TOTAL 0.72 mg/dL (0.2-1.3); CALCIUM 7.6 mg/dL (8.5-10.1); CARBON DIOXIDE 20.6 mmol/L (21.0-32.0); CREATININE - SERUM 1.4 mg/dL (0.6-1.3); MAGNESIUM - SERUM 1.9 mg/dL (1.8-2.4); POTASSIUM - SERUM 3.8 mmol/L (3.5-5.1); PROTEIN - SERUM 6.4 g/dL (6.4-8.2)
[2020-04-12 09:52] VITALS: BP 127/58
--- NOTE | 2020-04-12 12:38 | NUR ---
I have reviewed this patient and I concur with the Shift Assessment completed by the Licensed Practical Nurse today this shift.
[2020-04-12 12:48] VITALS: Ht 188 cm; Wt 77.1 kg
[2020-04-12 13:23] VITALS: BP 142/67
--- NOTE | 2020-04-12 16:15 | NUR ---
PATIENT CALLED ABOUT PATIENT MEDS. WANTING TO KNOW WHY HE ISNT ON THEM. EXPLAINED THE PHYSICIAN HAS NOT STARTED THEM YET. WANTED TO KNOW WHY. EXPLAINED I WAS UNSURE AND WOULD HAVE TO CALL AND ASK. VERBALIZED UNDERSTANDING. EXPLAINED TO HER THAT IF I DIDNT CALL HER BACK THEN THAT MEANS HIS MEDS ARE RESTARTED. VERBALIZED UNDERSTANDING. COMPLAINED OF CATE AGAIN WHILE ON PHONE STATING THAT SITTER HAD SAID SHE WASNT HELPFUL ABOUT GETTING HIS MEDS RESTARTED. CATE SPOKE WITH DR. HOWE EARLIER AND TOLD HIM THAT THE MED REC WASNT STARTED YET. TOLD CATE I WOULD TAKE THE PATIENT SO SHE WOULDNT HAVE ANYMORE PROBLEMS.
--- NOTE | 2020-04-12 16:29 | NUR ---
TOOK REPORT FROM CATE LUGO. PATIENT IN BED WITH NO COMPLAINTS OR SIGNS OF DISTRESS. IV INTACT. CALL LIGHT WITHIN REACH. SITTER AT BEDSIDE.
[2020-04-12 17:49] VITALS: BP 144/58
[2020-04-13 04:00] VITALS: BP 125/60; BP 139/66
[2020-04-13 05:58] LABS: BASOPHILS 0.1 % (0-2); EOSINOPHILS 0.6 % (0-7); HEMATOCRIT 42.3 % (42.0-54.0); HEMOGLOBIN 14.6 g/dL (13.5-17.5); IMMATURE GRANULOCYTES 0.3 % (0-5); LYMPHOCYTES 22.1 % (15-50); MCH 30.6 pg (26.0-34.0); MCHC 34.5 g/dL (31.0-37.0); MCV 88.7 fL (80.0-100.0); MEAN PLATELET VOLUME 9.9 fL (7.4-10.4); MONOCYTES 13.9 % (2-11); PLATELET COUNT 148 10x3/uL (130-400); RBC 4.77 10x6/uL (4.20-6.10); RDW 13.6 % (11.5-14.5); WBC 8.8 10x3/uL (4.8-10.8)
[2020-04-13 06:05] LABS: ANION GAP 14.9 mmol/L (8-16); CALCIUM 7.5 mg/dL (8.5-10.1); CARBON DIOXIDE 19.9 mmol/L (21.0-32.0); CREATININE - SERUM 1.1 mg/dL (0.6-1.3); POTASSIUM - SERUM 3.8 mmol/L (3.5-5.1)
[2020-04-13 10:00] VITALS: BP 110/60
[2020-04-13 12:42] VITALS: BP 145/58
--- NOTE | 2020-04-13 16:27 | NUR ---
I have reviewed this patient and I concur with the Shift Assessment completed by the Licensed Practical Nurse today this shift.
[2020-04-13 20:00] VITALS: BP 117/60
--- NOTE | 2020-04-13 21:20 | NUR ---
LYING IN BED. ALERT AND ORIENTED. CONFUSED AT TIMES. RESP IRREG. O2 @ 2L/NC. DENIES PAIN. INCONT OF B/B. NS @ 75 MLHR INFUSING IN LT WRIST. SITTER AT BEDSIDE. DENIES PAIN. SR ELEVATED X2. CL IN REACH.
[2020-04-14] VITALS: BP 114/61
--- NOTE | 2020-04-14 00:50 | NUR ---
INCONT OF B/B. COMPLETE LINEN CHANGE PERFORMED. PT HAD DIARRHEA. BUTTPASTE APPLIED TO RED INNER BUTTOCKS. SITTER AT BEDSIDE. CL IN REACH.
--- NOTE | 2020-04-14 03:01 | NUR ---
INCONT OF BLADDER. CHANGED PER SITTER. NO DISTRESS. CL IN REACH.
[2020-04-14 04:00] VITALS: BP 138/67
[2020-04-14 06:32] LABS: BASOPHILS 0.1 % (0-2); EOSINOPHILS 0.8 % (0-7); HEMATOCRIT 41.2 % (42.0-54.0); HEMOGLOBIN 14.2 g/dL (13.5-17.5); IMMATURE GRANULOCYTES 0.3 % (0-5); LYMPHOCYTES 23.7 % (15-50); MCH 30.4 pg (26.0-34.0); MCHC 34.5 g/dL (31.0-37.0); MCV 88.2 fL (80.0-100.0); MEAN PLATELET VOLUME 10.1 fL (7.4-10.4); NEUTROPHILS 62.1 % (40-80); PLATELET COUNT 143 10x3/uL (130-400); RBC 4.67 10x6/uL (4.20-6.10); RDW 13.6 % (11.5-14.5); WBC 8.7 10x3/uL (4.8-10.8)
[2020-04-14 06:36] LABS: ANION GAP 13.6 mmol/L (8-16); CALCIUM 7.7 mg/dL (8.5-10.1); CARBON DIOXIDE 20.1 mmol/L (21.0-32.0); CREATININE - SERUM 1.1 mg/dL (0.6-1.3); POTASSIUM - SERUM 3.7 mmol/L (3.5-5.1)
[2020-04-14 09:17] VITALS: BP 130/73
--- NOTE | 2020-04-14 09:50 | NUR ---
SPOKE WITH AT HOME. STATES THAT SHE DOES NOT PAY THE CAREGIVERS TO CHANGE OR GIVE THE PATIENT BATHS. SHE PAYS THEM TO SIT WITH HIM A EYEGLASS LENS GRINDER. SHE STATES THAT IT IS PROBABLY HOSPITAL PROTOCOL AND AN "INSURANCE THING" TO NOT LET CAREGIVERS TAKE CARE OF CHANGING AND BATHING PT. STATED THAT I NEEDED TO GO CHANGE HIM THEN I HAD ORIGINALLY JUST CAME OUT OF THE ROOM TO GET SUPPLIES. WE WOULD BATHE HIM SOON WE COULD.
[2020-04-14 13:08] VITALS: BP 127/58
--- NOTE | 2020-04-14 14:23 | NUR ---
PT UP AND IN CHAIR. CHAIR ALARM ON. PT CAREGIVER JOSEPH IN ROOM. CL IN REACH. WCTM
--- NOTE | 2020-04-14 15:34 | NUR ---
PT HAD A "BED BATH" IN THE CHAIR BY FERDINAND MONTOYA.
--- NOTE | 2020-04-14 17:18 | NUR ---
CAREGIVER JOSEPH IN ROOM. PT STATES HE HAS NO NEEDS AND THAT HE IS DRY AT THIS TIME. CL IN REACH. BED ALARM ON. WCTM
[2020-04-14 17:29] VITALS: BP 124/59
[2020-04-14 20:00] VITALS: BP 124/63
[2020-04-15] VITALS: BP 137/68
[2020-04-15 04:00] VITALS: BP 134/72
[2020-04-15 06:27] LABS: BASOPHILS 0.2 % (0-2); EOSINOPHILS 0.6 % (0-7); HEMATOCRIT 39.5 % (42.0-54.0); HEMOGLOBIN 13.8 g/dL (13.5-17.5); IMMATURE GRANULOCYTES 0.3 % (0-5); LYMPHOCYTES 22.8 % (15-50); MCH 30.4 pg (26.0-34.0); MCHC 34.9 g/dL (31.0-37.0); MEAN PLATELET VOLUME 10.3 fL (7.4-10.4); MONOCYTES 12.6 % (2-11); NEUTROPHILS 63.5 % (40-80); PLATELET COUNT 160 10x3/uL (130-400); RBC 4.54 10x6/uL (4.20-6.10); RDW 13.5 % (11.5-14.5); WBC 9.5 10x3/uL (4.8-10.8)
[2020-04-15 06:38] LABS: ANION GAP 13.5 mmol/L (8-16); CALCIUM 7.5 mg/dL (8.5-10.1); CREATININE - SERUM 1.1 mg/dL (0.6-1.3); POTASSIUM - SERUM 3.5 mmol/L (3.5-5.1)
--- NOTE | 2020-04-15 08:31 | NUR ---
ON SPEAKER PHONE TALKING WITH DAVIDJOSE CRUZ. STATES THAT WE CAN TELL HER INFORMATION ON HER BECAUSE SHE RELAYS THE INFORMATION. I STATED I WOULD BE ABLE TO ADD IT TO A NURSE NOTE BUT THAT WAS THE BEST I CAN DO. CL IN REACH. ЕЛЕНАTM
[2020-04-15 09:27] VITALS: BP 138/68
[2020-04-15 13:45] VITALS: BP 134/84
--- NOTE | 2020-04-15 15:41 | NUR ---
JOSEPH IN ROOM. STATED SHE HAD CHANGED PT SO PHYSICAL THERAPY COULD COME BACK AND WORK WITH PT. CL IN REACH. NO NEEDS AT THIS TIME. TYRONE
[2020-04-15 17:48] VITALS: BP 115/62
[2020-04-15 20:28] VITALS: BP 132/67
[2020-04-16 00:24] VITALS: BP 130/71
--- NOTE | 2020-04-16 02:17 | NUR ---
REC'D CHGE OF SHIFT WALKING ROUNDS.IN BED IN SITTING POSITION.DENIES PAIN AT PRESENT TIME.PRIVATE DUTY SITTER AT BEDSIDE.WILL CONTINUE TO MONITOR FOR ANY CHGES AND FOLLOW CURRENT PLAN OF CARE.
[2020-04-16 04:51] VITALS: BP 137/69
[2020-04-16 05:09] LABS: BASOPHILS 0.2 % (0-2); EOSINOPHILS 0.7 % (0-7); HEMATOCRIT 37.7 % (42.0-54.0); HEMOGLOBIN 12.7 g/dL (13.5-17.5); IMMATURE GRANULOCYTES 0.7 % (0-5); LYMPHOCYTES 23.3 % (15-50); MCH 30.7 pg (26.0-34.0); MCHC 33.7 g/dL (31.0-37.0); MEAN PLATELET VOLUME 9.6 fL (7.4-10.4); MONOCYTES 11.2 % (2-11); NEUTROPHILS 63.9 % (40-80); PLATELET COUNT 137 10x3/uL (130-400); RBC 4.14 10x6/uL (4.20-6.10); RDW 13.6 % (11.5-14.5); WBC 8.6 10x3/uL (4.8-10.8)
[2020-04-16 05:10] LABS: MCV 91.1 fL (80.0-100.0)
[2020-04-16 05:42] LABS: CALC OSMOLALITY 282 mosm/kg (275-300); CALCIUM 7.5 mg/dL (8.5-10.1); CARBON DIOXIDE 17.6 mmol/L (21.0-32.0); CHLORIDE - SERUM 110 mmol/L (98-107); CREATININE - SERUM 0.9 mg/dL (0.6-1.3); GLUCOSE 127 mg/dL (74-106); SODIUM 140 mmol/L (136-145); UREA NITROGEN 17 mg/dL (7-18); eGFR NON AFRICAN AMERICAN 85 mL/min (90-120)
[2020-04-16 05:49] LABS: POTASSIUM - SERUM 4.5 mmol/L (3.5-5.1)
[2020-04-16 08:41] VITALS: BP 131/68
--- NOTE | 2020-04-16 12:05 | NUR ---
PATIENT IN BED RESTING. CARER AT BEDSIDE, DENIES PAIN OR NEEDS. BED LOW POSITION, CALL LIGHT IN REACH, WILL CONTINUE TO MONITOR.
[2020-04-16 13:12] VITALS: BP 120/73
[2020-04-16 16:24] VITALS: BP 116/51
[2020-04-16 20:00] VITALS: BP 100/54
--- NOTE | 2020-04-17 01:51 | NUR ---
REC'D. WALKING ROUNDS CHGE OF SHIFT INCONT. OF URINE.PERICARE ,COMPLETE LINEN CHGE GIVEN SITTER AT BEDSIDE REQUEST TO STAY ON BACK . WILL CONTINUE TO MONITOR FOR ANY CHGES. AND FOLLOW CURRENT PLAN OF CARE.
[2020-04-17 04:00] VITALS: BP 126/64
[2020-04-17 06:44] LABS: BASOPHILS 0.1 % (0-2); EOSINOPHILS 1.3 % (0-7); HEMATOCRIT 37.9 % (42.0-54.0); IMMATURE GRANULOCYTES 1.3 % (0-5); LYMPHOCYTES 23.6 % (15-50); MCH 30.1 pg (26.0-34.0); MCHC 34.3 g/dL (31.0-37.0); MEAN PLATELET VOLUME 9.6 fL (7.4-10.4); MONOCYTES 9.1 % (2-11); NEUTROPHILS 64.6 % (40-80); RBC 4.32 10x6/uL (4.20-6.10); RDW 13.7 % (11.5-14.5); WBC 10.4 10x3/uL (4.8-10.8)
[2020-04-17 06:48] LABS: MCV 87.7 fL (80.0-100.0); PLATELET COUNT 179 10x3/uL (130-400)
[2020-04-17 06:50] LABS: ANION GAP 12.9 mmol/L (8-16); CALCIUM 7.5 mg/dL (8.5-10.1); CARBON DIOXIDE 21.8 mmol/L (21.0-32.0)
[2020-04-17 06:56] LABS: CREATININE - SERUM 1.4 mg/dL (0.6-1.3); POTASSIUM - SERUM 3.7 mmol/L (3.5-5.1)
[2020-04-17 09:36] VITALS: BP 124/62
--- NOTE | 2020-04-17 10:54 | NUR ---
CAREGIVER AT BEDSIDE. PATIENT DENIES PAIN OR NEEDS. BED LOW POSITION, CALL LIGHT IN REACH, WILL CONTINUE TO MONITOR.
[2020-04-17 13:24] VITALS: BP 106/53
--- NOTE | 2020-04-17 13:44 | NUR ---
Nutrition follow-up: Pt receiving a regular soft diet with po intake ~50% average of last 6 meals Diet advanced to regular soft from full liquids ( requested) Labs reviewed +BM, loose Wt: 170# PO intake fair at this time. May consider adding Gibson nutritional supplement, BID mixed in juice. it may help with loose stools due to the glutamine. RDN following.
[2020-04-17 18:21] VITALS: BP 122/50
[2020-04-17 20:00] VITALS: BP 132/70
--- NOTE | 2020-04-18 01:15 | NUR ---
REC'D IN BED, CAREGIVER REFUSES FOR PATIENT TO RECEIVE QUESTRAN STATES DR WAS TO CHGE TO DAILY SHOWED SITTER ON OCT TWICE/DAY STILL STATES THATS NOT RIGHT. WILL CONTINUE TO MONITOR FOR ANY CHGES AND FOLLOW CURRENT PLAN OF CARE
[2020-04-18 04:00] VITALS: BP 150/68
--- NOTE | 2020-04-18 05:03 | NUR ---
I have reviewed this patient and I concur with the Shift Assessment completed by the Licensed Practical Nurse today this shift.
[2020-04-18] MEDS ORDERED: NYSTATIN100000 UN4 PO (07:38)
[2020-04-18] MEDS ORDERED: FLAGYL500 MG PO (07:40)
[2020-04-18] MEDS ORDERED: QUESTRAN LIG1 PACKET PO (07:45)
[2020-04-18 09:48] VITALS: BP 105/56
--- NOTE | 2020-04-18 10:21 | MORECARE ---
CASE MANAGEMENT DISCHARGE SUMMARY PATIENT: OMAR GREENWOOD UNIT: [id number] ADM DATE: 04/11/20 AGE: 84 : 36 SEX: M ROOM/BED: D.2230 AUTHOR: TANNA OLVERA PHYSICIAN: REFERRING PHYSICIAN: EFRA CABELLO MD DATE OF SERVICE: 04/18/20 Discharge Plan Patient Name: OMAR GREENWOOD Facility: [facility]:[place] : 1935 Planned Disposition: Anticipated Discharge Date: Discharge Date: Expected LOS: Initial Reviewer: [email or web address] Initial Review Date: 04/11/2020 Generated: 04/18/20 11:21 am DCPIA - Discharge Planning Initial Assessment Updated by [email or web address]: Rosa May on 04/18/20 10:20 am * Is the patient Alert and Oriented? Yes * PCP SORREL * Preadmission Environment Home with Family * ADLs Independent * Other Equipment WALKER * Community resources currently utilized Private Duty Care * Additional services required to return to the preadmission environment? Yes * Can the patient safely return to the preadmission environment? Yes * Has this patient been hospitalized within the prior 30 days at any hospital? No External Providers [email or web address] Next Contact Date: Service Request Date: Service Type: Resolution: Reviewer: Comments: Coverage Notice Reviewer: [email or web address] Taye May Notice Issued Date-Time: 04/18/2020 10:16 Notice Type: IM Discharge Notice Notice Delivered To: Patient Relationship to Patient: Aquaculture Farmer Name: Delivery Method: HAND - Hand Delivered Lisa Days: Prior Verbal Notification: Recipient Understood Notice: Yes Recipient Signature: Yes Med Rec Note Co-signed by Attending: Coverage Notice Comment: Reviewer: [email or web address] Taye May Notice Issued Date-Time: 04/18/2020 10:16 Notice Type: Patient Choice Letter Notice Delivered To: Patient Relationship to Patient: Aquaculture Farmer Name: Delivery Method: - Lisa Days: Prior Verbal Notification: Recipient Understood Notice: Recipient Signature: Med Rec Note Co-signed by Attending: Coverage Notice Comment: Patient Name: OMAR GREENWOOD Page [phone] at 1021 All edits/amendments must be made on the electronic document DICTATION DATE: 04/18/20 1021 EGG PRODUCER: SAMMI 04/18/20 1021 RPT#: [id number] DC DATE: STATUS: ADM IN [facility] [address] [place] [address] END OF REPORT
--- NOTE | 2020-04-18 10:29 | MORECARE ---
CASE MANAGEMENT DISCHARGE SUMMARY PATIENT: OMAR GREENWOOD UNIT: [id number] ADM DATE: 04/11/20 AGE: 84 : 36 SEX: M ROOM/BED: D.2230 AUTHOR: [email or web address] PHYSICIAN: REFERRING PHYSICIAN: EFRA CABELLO MD DATE OF SERVICE: 04/18/20 Discharge Plan Patient Name: OMAR GREENWOOD Facility: [facility]:[place] : 1935 Planned Disposition: Anticipated Discharge Date: Discharge Date: Expected LOS: Initial Reviewer: [email or web address] Initial Review Date: 04/11/2020 Generated: 04/18/20 11:29 am Comments DCP- Discharge Planning Updated by [email or web address]: Rosa May on 04/18/20 9:[address] Patient Name: OMAR GREENWOOD Admission Status: ER Accout number: [id number] Admission Date: 04-11-2020 : 1935 Admission Diagnosis:OTHER SPECIFIED NONINFECTIVE GASTROENTERITIS AND COLITI Attending: EFRA CABELLO Current LOS: 7 Anticipated DC Date: Planned Disposition: Primary Insurance: MEDICARE A & B Discharge Planning Comments: CM met with patient at bedside after explaining CM role and obtaining verbal consent. CORTNEY ON PHONE. WE DISCUSSED HH, THEY WOULD LIKE [facility] . SILVIA SIGNED AND IMM. FAXED REFERRRAL TO [facility].CM discussed availability / needs of home health, REHAB and medical equipment. IS SETTING UP HIM TRANSPORT TO HOME TODAY. CM TO FOLLOW AND ASSIST NEEDED. Coffee Break Attendant: Rosa May DCPIA - Discharge Planning Initial Assessment Updated by [id number]: Rosa May on 04/18/20 10:20 am * Is the patient Alert and Oriented? Yes * PCP SORREL * Preadmission Environment Home with Family * ADLs Independent * Other Equipment WALKER * Community resources currently utilized Private Duty Care * Additional services required to return to the preadmission environment? Yes * Can the patient safely return to the preadmission environment? Yes * Has this patient been hospitalized within the prior 30 days at any hospital? No Coverage Notice Reviewer: [id number] - Rosa May Notice Issued Date-Time: 04/18/2020 10:16 Notice Type: IM Discharge Notice Notice Delivered To: Patient Relationship to Patient: Pool Lifeguard Name: Delivery Method: HAND - Hand Delivered Lisa Days: Prior Verbal Notification: Recipient Understood Notice: Yes Recipient Signature: Yes Med Rec Note Co-signed by Attending: Coverage Notice Comment: Reviewer: [email or web address] Taye May Notice Issued Date-Time: 04/18/2020 10:16 Notice Type: Patient Choice Letter Notice Delivered To: Patient Relationship to Patient: Pool Lifeguard Name: Delivery Method: - Lisa Days: Prior Verbal Notification: Recipient Understood Notice: Recipient Signature: Med Rec Note Co-signed by Attending: Coverage Notice Comment: Last DP export: 04/18/20 9:21 a Patient Name: OMAR GREENWOOD Page [phone] at 1029 All edits/amendments must be made on the electronic document DICTATION DATE: 04/18/20 1029 WASHER OPERATOR: SAMMI 04/18/20 1029 RPT#: [id number] DC DATE: STATUS: ADM IN [place] [address] [place] [address] END OF REPORT
[2020-04-18 13:05] LABS: ANION GAP 13.6 mmol/L (8-16); CALCIUM 7.5 mg/dL (8.5-10.1); CARBON DIOXIDE 20.7 mmol/L (21.0-32.0); CREATININE - SERUM 1.4 mg/dL (0.6-1.3)
[2020-04-18 13:07] LABS: POTASSIUM - SERUM 4.3 mmol/L (3.5-5.1)
--- NOTE | 2020-04-18 14:05 | NUR ---
0700 BEDSIDE REPORT RECEIVED ASSESSMENT COMPLETE VOICES NO QUINCY PAIN AT PRESENT
--- NOTE | 2020-04-18 14:06 | NUR ---
1100 ASSIST FROM PT X 2 TO CHAIR
--- NOTE | 2020-04-18 14:18 | NUR ---
1100 AMBULATIING IN [place] WITH PT TO ASSIST HAQ O2 SAT 75%
--- NOTE | 2020-04-18 14:28 | NUR ---
[address] CABELLO PT NOW ON 4L NC SAT - WHILE ASLEEP NEW ORDERS NOTED
[2020-04-18 17:34] VITALS: BP 136/73
--- NOTE | 2020-04-18 19:30 | NUR ---
PATIENT RESTING IN BED WITH EYES CLOSED. NO S/S OF ACUTE DISTRESS. NO C/O AT THIS TIME. PATIENT SEEMS LETHARGIC. PATIENT WEARING 7L NASAL CANNULA AND CPAP. PATIENT HAS IV IN LEFT FOREARM. IV IS PATENT WITHOUT REDNESS, SWELLING, OR TENDERNESS. CALL LIGHT WITHIIN REACH. WILL CONTINUE TO MONITOR.
[2020-04-18 20:00] VITALS: BP 136/76
--- NOTE | 2020-04-18 20:14 | NUR ---
1600 REMAINS LETHARGIC KNODS HEAD WHEN ANSWERING QUESTIONS RT UBCREASED I2/ND TO 7L
--- NOTE | 2020-04-18 23:10 | NUR ---
RESPIRATORY, LICHA, CAME UP AND ASKED IF THE PATIENT HAD STROKE-LIKE SYPTOMS BEFORE BECAUSE THE SITTER WITH HIM WAS TELLING LICHA THAT THE PATIENT HADN'T BEEN RIGHT SINCE THE ACCIDENT THIS AFTERNOON. ICU NURSE, EVETTE, TOLD ME THAT SHE HAD ALREADY CALLED DESTINEY EARLIER ABOUT IT. I WENT AHEAD AND CHECKED HIS EYES, PERRLA BUT ONLY AROUSES TO VOICE AND TOUCH. HAND AUTOMOTIVE HEAVY MECHANIC ARE UNEQUAL, LEFT HAND IS FLACCID AND RIGHT IS WEAK. FOOT PEDALS ARE THE SAME, LEFT WEAKER THAN THE RIGHT. I IMMEADIATELY PAGED DR. CABELLO. DR. RODRIGUES WAS CSW. ORDERS RECIEVED. PATIENT HAD ONLY HAD 24 GUAGE IN LEFT FOREARM, 2O HAD TO BE PLACED. 20 GAUGE WAS PLACED BY ICU NURSE. IV IS PATENT WITHOUT REDNESS, SWELLING, OR TENDERNESS. RADIOLOGY CALLED AND REPORTED MODERATE BILATERAL PE. DR. RODRIGUES WAS PAGED AGAIN. FINDINGS WERE REPORTED. NO NEW ORDERS WERE GIVEN. CALL LIGHT WITHIN REACH. WILL CONTINUE TO MONITOR.
[2020-04-19 04:00] VITALS: BP 155/74
--- NOTE | 2020-04-19 05:13 | NUR ---
I have reviewed this patient and I concur with the Shift Assessment completed by the Licensed Practical Nurse today this shift.
[2020-04-19 06:40] LABS: CALCIUM 7.7 mg/dL (8.5-10.1); CREATININE - SERUM 1.2 mg/dL (0.6-1.3)
[2020-04-19 07:16] LABS: HEMATOCRIT 41.5 % (42.0-54.0); LYMPHOCYTES 21.9 % (15-50); MCH 30.6 pg (26.0-34.0); MCHC 33.7 g/dL (31.0-37.0); MCV 90.6 fL (80.0-100.0); MEAN PLATELET VOLUME 9.5 fL (7.4-10.4); NEUTROPHILS 68.9 % (40-80); RBC 4.58 10x6/uL (4.20-6.10); RDW 14.4 % (11.5-14.5); WBC 11.1 10x3/uL (4.8-10.8)
[2020-04-19 07:25] LABS: ANION GAP 16.8 mmol/L (8-16); CARBON DIOXIDE 16.2 mmol/L (21.0-32.0)
[2020-04-19 07:31] LABS: PLATELET COUNT 133 10x3/uL (130-400)
--- NOTE | 2020-04-19 08:29 | NUR ---
The patient is lying in bed with his CPAP, he is responsive to touch, but he is nonverbal, IV patent, sitter was at bedside, she is goiing to pick the patient's spouse up.
[2020-04-19 09:24] VITALS: BP 130/73
--- NOTE | 2020-04-19 09:38 | NUR ---
The patient is NPO. Spouse and sitter at the bedside.
[2020-04-19 13:51] VITALS: BP 135/88
--- NOTE | 2020-04-19 14:18 | NUR ---
The patient's spouse request that the physician please call her, let her know that the is aware.
--- NOTE | 2020-04-19 16:51 | MORECARE ---
CASE MANAGEMENT DISCHARGE SUMMARY PATIENT: OMAR GREENWOOD UNIT: [id number] ADM DATE: 04/11/20 AGE: 84 : 36 SEX: M ROOM/BED: D.2230 AUTHOR: TANNA OLVERA PHYSICIAN: REFERRING PHYSICIAN: EFRA CABELLO MD DATE OF SERVICE: 04/19/20 Discharge Plan Patient Name: OMAR GREENWOOD Facility: [facility]:[place] : 1935 Planned Disposition: Anticipated Discharge Date: Discharge Date: Expected LOS: Initial Reviewer: [id number] Initial Review Date: 04/11/2020 Generated: 04/19/20 5:50 pm Comments DCP- Discharge Planning Updated by [id number]: Rosa May on 04/19/20 3:[address] Patient Name: OMAR GREENWOOD Admission Status: ER Accout number: [id number] Admission Date: 04-11-2020 : 1935 Admission Diagnosis:OTHER SPECIFIED NONINFECTIVE GASTROENTERITIS AND COLITI Attending: EFRA CABELLO Current LOS: 8 Anticipated DC Date: Planned Disposition: Primary Insurance: MEDICARE A & B Discharge Planning Comments: DOCTOR SPOKE WITH PATIENT AND THEY WOULD LIKE HOME WITH HOME HOSPICE TOMORROW. I CALLLED HIS CORTNEY BUT NO ANSWER, I LEFT A MESSAGE TO CALL ME BACK. WE NEED TO KNOW WHAT HOSPICE SHE WANTS TO USE SO I CAN FAX CLINICALS TO THEM AND START THE PROCESS. IT IS END OF DAY TODAY. I WILL LEAVE A MESSAGE FOR ONEAL PALACIOS RNHOGSHEAD FILLER HERE TOMORROW. CM TO FOLLOW AND ASSIST NEEDED. Art Therapist: Rosa May DCP- Discharge Planning Updated by [email or web address]: Rosa May on 04/18/20 9:[address] Patient Name: OMAR GREENWOOD Admission Status: ER Accout number: [id number] Admission Date: 04-11-2020 : 1935 Admission Diagnosis:OTHER SPECIFIED NONINFECTIVE GASTROENTERITIS AND COLITI Attending: EFRA CABELLO Current LOS: 7 Anticipated DC Date: Planned Disposition: Primary Insurance: MEDICARE A & B Discharge Planning Comments: CM met with patient at bedside after explaining CM role and obtaining verbal consent. CORTNEY ON PHONE. WE DISCUSSED HH, THEY WOULD LIKE [facility]. SILVIA SIGNED AND IMM. FAXED REFERRRAL TO [facility].CM discussed availability / needs of home health, REHAB and medical equipment. IS SETTING UP HIM TRANSPORT TO HOME TODAY. CM TO FOLLOW AND ASSIST NEEDED. Art Therapist: Rosa May DCPIA - Discharge Planning Initial Assessment Updated by [email or web address]: Rosa May on 04/18/20 10:20 am * Is the patient Alert and Oriented? Yes * PCP SORREL * Preadmission Environment Home with Family * ADLs Independent * Other Equipment WALKER * Community resources currently utilized Private Duty Care * Additional services required to return to the preadmission environment? Yes * Can the patient safely return to the preadmission environment? Yes * Has this patient been hospitalized within the prior 30 days at any hospital? No Coverage Notice Reviewer: [id number] Taye May Notice Issued Date-Time: 04/18/2020 10:16 Notice Type: IM Discharge Notice Notice Delivered To: Patient Relationship to Patient: Pinion Polisher Name: Delivery Method: HAND - Hand Delivered Lisa Days: Prior Verbal Notification: Recipient Understood Notice: Yes Recipient Signature: Yes Med Rec Note Co-signed by Attending: Coverage Notice Comment: Reviewer: [id number] Taye May Notice Issued Date-Time: 04/18/2020 10:16 Notice Type: Patient Choice Letter Notice Delivered To: Patient Relationship to Patient: Pinion Polisher Name: Delivery Method: - Lisa Days: Prior Verbal Notification: Recipient Understood Notice: Recipient Signature: Med Rec Note Co-signed by Attending: Coverage Notice Comment: Last DP export: 04/18/20 9:30 a Patient Name: OMAR GREENWOOD Page [id number] at 1651 All edits/amendments must be made on the electronic document DICTATION DATE: 04/19/201649 TECHNOLOGIST DEVELOPMENT: SAMMI 04/19/201649 RPT#: [id number] DC DATE: STATUS: ADM IN [facility] [address] [place] [address] END OF REPORT
[2020-04-19 17:43] VITALS: BP 137/79
--- NOTE | 2020-04-19 20:00 | NUR ---
PATIENT RESTING IN BED WITH SITTER HOLDING PHONE TO PATIENT'S EAR SO COULD TALK TO HIM. NO S/S OF ACUTE DISTRESS. NO C/O AT THIS TIME. PATIENT IS ON 8L HIGH FLOW NASAL CANNULA. PATIET HAS LEFT FOREARM, NORMAL SALINE @ 50 ML/HR. IV IS PATENT WITHOUT REDNESS, SWELLING, OR TENDERNESS. PATIENT SITTER REPORTED THAT HE HASN'T BEEN EATING AND SINCE HE KEEPS CHOKING ON HIS OWN SPIT, I DO NOT FEEL SAFE IN GIVING HIM HIS PO MEDS FOR FEAR OD ASPIRATION. PATIENT HAS PACER AND DEFIB. CALL LIGHT WITHIN REACH. BED ALARM ON. WILL CONTINUE TO MONITOR.
[2020-04-19 20:10] VITALS: BP 143/69
[2020-04-20] VITALS: BP 142/67
--- NOTE | 2020-04-20 02:26 | NUR ---
I have reviewed this patient and I concur with the Shift Assessment completed by the Licensed Practical Nurse today this shift.
[2020-04-20 04:00] VITALS: BP 140/76
--- NOTE | 2020-04-20 09:06 | MORECARE ---
CASE MANAGEMENT DISCHARGE SUMMARY PATIENT: OMAR GREENWOOD UNIT: [id number] ADM DATE: 04/11/20 AGE: 84 : 36 SEX: M ROOM/BED: D.2230 AUTHOR: TANNA OLVERA PHYSICIAN: REFERRING PHYSICIAN: EFRA CABELLO MD DATE OF SERVICE: 04/20/20 Discharge Plan Patient Name: OMAR GREENWOOD Facility: [facility]:[place] : 1935 Planned Disposition: Anticipated Discharge Date: Discharge Date: Expected LOS: Initial Reviewer: [id number] Initial Review Date: 04/11/2020 Generated: 04/20/20 10:05 am Comments DCP- Discharge Planning Updated by [email or web address]: Rosa May on 04/19/20 3:[address] Patient Name: OMAR GREENWOOD Admission Status: ER Accout number: [id number] Admission Date: 04-11-2020 : 1935 Admission Diagnosis:OTHER SPECIFIED NONINFECTIVE GASTROENTERITIS AND COLITI Attending: EFRA CABELLO Current LOS: 8 Anticipated DC Date: Planned Disposition: Primary Insurance: MEDICARE A & B Discharge Planning Comments: DOCTOR SPOKE WITH PATIENT AND THEY WOULD LIKE HOME WITH HOME HOSPICE TOMORROW. I CALLLED HIS CORTNEY BUT NO ANSWER, I LEFT A MESSAGE TO CALL ME BACK. WE NEED TO KNOW WHAT HOSPICE SHE WANTS TO USE SO I CAN FAX CLINICALS TO THEM AND START THE PROCESS. IT IS END OF DAY TODAY. I WILL LEAVE A MESSAGE FOR ONEAL PALACIOS RNHEATER PLANER OPERATOR HERE TOMORROW. CM TO FOLLOW AND ASSIST NEEDED. Pantograph Machine Operator: Rosa May DCP- Discharge Planning Updated by [id number]: Rosa May on 04/18/20 9:[address] Patient Name: OMAR GREENWOOD Admission Status: ER Accout number: [id number] Admission Date: 04-11-2020 : 1935 Admission Diagnosis:OTHER SPECIFIED NONINFECTIVE GASTROENTERITIS AND COLITI Attending: EFRA CABELLO Current LOS: 7 Anticipated DC Date: Planned Disposition: Primary Insurance: MEDICARE A & B Discharge Planning Comments: CM met with patient at bedside after explaining CM role and obtaining verbal consent. CORTNEY ON PHONE. WE DISCUSSED HH, THEY WOULD LIKE [facility]. SILVIA SIGNED AND IMM. FAXED REFERRRAL TO [facility].CM discussed availability / needs of home health, REHAB and medical equipment. IS SETTING UP HIM TRANSPORT TO HOME TODAY. CM TO FOLLOW AND ASSIST NEEDED. Pantograph Machine Operator: Rosapati May DCPIA - Discharge Planning Initial Assessment Updated by [email or web address]: Rosa May on 04/18/20 10:20 am * Is the patient Alert and Oriented? Yes * PCP SORREL * Preadmission Environment Home with Family * ADLs Independent * Other Equipment WALKER * Community resources currently utilized Private Duty Care * Additional services required to return to the preadmission environment? Yes * Can the patient safely return to the preadmission environment? Yes * Has this patient been hospitalized within the prior 30 days at any hospital? No External Providers External Provider: [facility]provides inpt [facility] Next Contact Date: Service Request Date: Service Type: Resolution: Reviewer: Comments: Coverage Notice Reviewer: [id number] Taye May Notice Issued Date-Time: 04/18/2020 10:16 Notice Type: IM Discharge Notice Notice Delivered To: Patient Relationship to Patient: Composition Weatherboard Installer Name: Delivery Method: HAND - Hand Delivered Lisa Days: Prior Verbal Notification: Recipient Understood Notice: Yes Recipient Signature: Yes Med Rec Note Co-signed by Attending: Coverage Notice Comment: Reviewer: [id number] Taye May Notice Issued Date-Time: 04/18/2020 10:16 Notice Type: Patient Choice Letter Notice Delivered To: Patient Relationship to Patient: Composition Weatherboard Installer Name: Delivery Method: - Lisa Days: Prior Verbal Notification: Recipient Understood Notice: Recipient Signature: Med Rec Note Co-signed by Attending: Coverage Notice Comment: Last DP export: 04/19/20 3:51 p Patient Name: OMAR GREENWOOD Page [phone] at 0906 All edits/amendments must be made on the electronic document DICTATION DATE: 04/20/20904 CASH POSTING CLERK: SAMMI 04/20/20904 RPT#: [id number] DC DATE: STATUS: ADM IN [facility] [address] [place] [address] END OF REPORT
--- NOTE | 2020-04-20 09:19 | MORECARE ---
CASE MANAGEMENT DISCHARGE SUMMARY PATIENT: OMAR GREENWOOD UNIT: [id number] ADM DATE: 04/11/20 AGE: 84 : 36 SEX: M ROOM/BED: D.2230 AUTHOR: TANNA OLVERA PHYSICIAN: REFERRING PHYSICIAN: EFRA CABELLO MD DATE OF SERVICE: 04/20/20 Discharge Plan Patient Name: OMAR GREENWOOD Facility: [facility]:[place] : 1935 Planned Disposition: Anticipated Discharge Date: Discharge Date: Expected LOS: Initial Reviewer: [id number] Initial Review Date: 04/11/2020 Generated: 04/20/20 10:18 am Comments DCP- Discharge Planning Updated by [id number]: Soledad Palacios on 04/20/20 8:[address] Patient Name: OMAR GREENWOOD Encounter No: [id number] : 1935 Primary Insurance: MEDICARE A & B Anticipated DC Date: Planned Disposition: External Planned Provider: : DCP follow-up note: Telephone call to [facility] ([phone]) spoke with Lenny. Clinicals requested and faxed. Hospice will evaluate patient and order DME as appropriate prior to DC. Patient and family in agreement with discharge plan. No changes to plan. Case management will follow and assist as needed. Pollo Byers DCP- Discharge Planning Updated by [id number]: Rosa May on 04/19/20 3:[address] Patient Name: OMAR GREENWOOD Admission Status: ER Accout number: [id number] Admission Date: 04-11-2020 : 1935 Admission Diagnosis:OTHER SPECIFIED NONINFECTIVE GASTROENTERITIS AND COLITI Attending: EFRA CABELLO Current LOS: 8 Anticipated DC Date: Planned Disposition: Primary Insurance: MEDICARE A & B Discharge Planning Comments: DOCTOR SPOKE WITH PATIENT AND THEY WOULD LIKE HOME WITH HOME HOSPICE TOMORROW. I CALLLED HIS CORTNEY BUT NO ANSWER, I LEFT A MESSAGE TO CALL ME BACK. WE NEED TO KNOW WHAT HOSPICE SHE WANTS TO USE SO I CAN FAX CLINICALS TO THEM AND START THE PROCESS. IT IS END OF BUISINESS DAY TODAY. I WILL LEAVE A MESSAGE FOR SOLEDAD PALACIOS AGENT LICENSING CLERK HERE TOMORROW. CM TO FOLLOW AND ASSIST NEEDED. Hammer Setter: Rosa May DCP- Discharge Planning Updated by [id number]: Rosa May on 04/18/20 9:[address] Patient Name: OMAR GREENWOOD Admission Status: ER Accout number: [id number] Admission Date: 04-11-2020 : 1935 Admission Diagnosis:OTHER SPECIFIED NONINFECTIVE GASTROENTERITIS AND COLITI Attending: EFRA CABELLO Current LOS: 7 Anticipated DC Date: Planned Disposition: Primary Insurance: MEDICARE A & B Discharge Planning Comments: CM met with patient at bedside after explaining CM role and obtaining verbal consent. CORTNEY ON PHONE. WE DISCUSSED HH, THEY WOULD LIKE [facility]. SILVIA SIGNED AND IMM. FAXED REFERRRAL TO [facility].CM discussed availability / needs of home health, REHAB and medical equipment. IS SETTING UP HIM TRANSPORT TO HOME TODAY. CM TO FOLLOW AND ASSIST NEEDED. Hammer Setter: Rosa May DCPIA - Discharge Planning Initial Assessment Updated by [email or web address]: Rosa May on 04/18/20 10:20 am * Is the patient Alert and Oriented? Yes * PCP SORREL * Preadmission Environment Home with Family * ADLs Independent * Other Equipment WALKER * Community resources currently utilized Private Duty Care * Additional services required to return to the preadmission environment? Yes * Can the patient safely return to the preadmission environment? Yes * Has this patient been hospitalized within the prior 30 days at any hospital? No Coverage Notice Reviewer: [id number] Taye May Notice Issued Date-Time: 04/18/2020 10:16 Notice Type: IM Discharge Notice Notice Delivered To: Patient Relationship to Patient: Dress Finisher Name: Delivery Method: HAND - Hand Delivered Lisa Days: Prior Verbal Notification: Recipient Understood Notice: Yes Recipient Signature: Yes Med Rec Note Co-signed by Attending: Coverage Notice Comment: Reviewer: [id number] Taye May Notice Issued Date-Time: 04/18/2020 10:16 Notice Type: Patient Choice Letter Notice Delivered To: Patient Relationship to Patient: Dress Finisher Name: Delivery Method: - Lisa Days: Prior Verbal Notification: Recipient Understood Notice: Recipient Signature: Med Rec Note Co-signed by Attending: Coverage Notice Comment: Last DP export: 04/20/20 8:06 a Patient Name: OMAR GREENWOOD Page [phone] at 0919 All edits/amendments must be made on the electronic document DICTATION DATE: 04/20/20917 INTER COM SERVICER: SAMMI 04/20/20917 RPT#: [id number] DC DATE: STATUS: ADM IN [facility] [address] [place] [address] END OF REPORT
[2020-04-20 09:54] VITALS: BP 147/76
--- NOTE | 2020-04-20 11:16 | NUR ---
PT SOMNOLENT. BREATH SOUNDS DIMINISHED TO ALL BRICE. IV TO LEFT FOREARM, PATENT, DRESSING CDI. SCROTUM SWELLING, PT MOANS IN DISCOMFORT UPON TOUCH. CAREGIVER AT BEDSIDE. BED LOW, CALL LIGHT IN REACH. NO OTHER NEEDS AT THIS TIME.
[2020-04-20 12:43] VITALS: BP 138/68
--- NOTE | 2020-04-20 18:34 | NUR ---
DISCHARGE PAPERWORK SIGNED, ALL QUESTIONS ANSWERED. IV TO LEFT FOREARM AND LEFT WRIST DC'D, TIPS INTACT. ESCORTED OUT VIA [facility].
--- NOTE | 2020-04-23 10:03 | MORECARE ---
CASE MANAGEMENT DISCHARGE SUMMARY PATIENT: OMAR GREENWOOD UNIT: [id number] ADM DATE: 04/11/20 AGE: 84 : 36 SEX: M ROOM/BED: D.2230 AUTHOR: TANNA OLVERA PHYSICIAN: REFERRING PHYSICIAN: EFRA CABELLO MD DATE OF SERVICE: 04/23/20 Discharge Plan Patient Name: OMAR GREENWOOD Facility: [facility]:[place] : 1935 Planned Disposition: Anticipated Discharge Date: Discharge Date: 04/20/2020 Expected LOS: Initial Reviewer: [id number] Initial Review Date: 04/11/2020 Generated: 04/23/20 11:03 am Comments DCP- Discharge Planning Updated by [id number]: Soledad Palacios on 04/20/20 8:[address] Patient Name: OMAR GREENWOOD Encounter No: [id number] : 1935 Primary Insurance: MEDICARE A & B Anticipated DC Date: Planned Disposition: External Planned Provider: : DCP follow-up note: Telephone call to [facility] ([phone]) spoke with Lenny. Clinicals requested and faxed. Hospice will evaluate patient and order DME as appropriate prior to DC. Patient and family in agreement with discharge plan. No changes to plan. Case management will follow and assist as needed. Pollo Byers DCP- Discharge Planning Updated by [id number]: Rosa May on 04/19/20 3:[address] Patient Name: OMAR GREENWOOD Admission Status: ER Accout number: [id number] Admission Date: 04-11-2020 : 1935 Admission Diagnosis:OTHER SPECIFIED NONINFECTIVE GASTROENTERITIS AND COLITI Attending: EFRA CABELLO Current LOS: 8 Anticipated DC Date: Planned Disposition: Primary Insurance: MEDICARE A & B Discharge Planning Comments: DOCTOR SPOKE WITH PATIENT AND THEY WOULD LIKE HOME WITH HOME HOSPICE TOMORROW. I CALLLED HIS CORTNEY BUT NO ANSWER, I LEFT A MESSAGE TO CALL ME BACK. WE NEED TO KNOW WHAT HOSPICE SHE WANTS TO USE SO I CAN FAX CLINICALS TO THEM AND START THE PROCESS. IT IS END OF BUISINESS DAY TODAY. I WILL LEAVE A MESSAGE FOR SOLEDAD PALACIOS COSMETOLOGY PROFESSOR HERE TOMORROW. CM TO FOLLOW AND ASSIST NEEDED. Ambulatory Care: Rosa May DCP- Discharge Planning Updated by [id number]: Rosa May on 04/18/20 9:[address] Patient Name: OMAR GREENWOOD Admission Status: ER Accout number: [id number] Admission Date: 04-11-2020 : 1935 Admission Diagnosis:OTHER SPECIFIED NONINFECTIVE GASTROENTERITIS AND COLITI Attending: EFRA CABELLO Current LOS: 7 Anticipated DC Date: Planned Disposition: Primary Insurance: MEDICARE A & B Discharge Planning Comments: CM met with patient at bedside after explaining CM role and obtaining verbal consent. CORTNEY ON PHONE. WE DISCUSSED HH, THEY WOULD LIKE [facility]. SILVIA SIGNED AND IMM. FAXED REFERRRAL TO [facility].CM discussed availability / needs of home health, REHAB and medical equipment. IS SETTING UP HIM TRANSPORT TO HOME TODAY. CM TO FOLLOW AND ASSIST NEEDED. Ambulatory Care: Rosa May DCPIA - Discharge Planning Initial Assessment Updated by [id number]: Rosa May on 04/18/20 10:20 am * Is the patient Alert and Oriented? Yes * PCP SORREL * Preadmission Environment Home with Family * ADLs Independent * Other Equipment WALKER * Community resources currently utilized Private Duty Care * Additional services required to return to the preadmission environment? Yes * Can the patient safely return to the preadmission environment? Yes * Has this patient been hospitalized within the prior 30 days at any hospital? No Coverage Notice Reviewer: [id number] Taye May Notice Issued Date-Time: 04/18/2020 10:16 Notice Type: IM Discharge Notice Notice Delivered To: Patient Relationship to Patient: Special Education Para Professional Name: Delivery Method: HAND - Hand Delivered Lisa Days: Prior Verbal Notification: Recipient Understood Notice: Yes Recipient Signature: Yes Med Rec Note Co-signed by Attending: Coverage Notice Comment: Reviewer: [id number] Taye May Notice Issued Date-Time: 04/18/2020 10:16 Notice Type: Patient Choice Letter Notice Delivered To: Patient Relationship to Patient: Special Education Para Professional Name: Delivery Method: - Lisa Days: Prior Verbal Notification: Recipient Understood Notice: Recipient Signature: Med Rec Note Co-signed by Attending: Coverage Notice Comment: Last DP export: 04/20/20 8:19 a Patient Name: OMAR GREENWOOD Page [phone] at 1003 All edits/amendments must be made on the electronic document DICTATION DATE: 04/23/20 100 TEACHING PASTOR: SAMMI 04/23/20 1003 RPT#: [id number] DC DATE:04/20/20 STATUS: DIS IN [facility] [address] [facility] [place] [address] END OF REPORT
== END 2020-04-20 18:35 | disposition home health service (06) | DRG 391 ==
LOC: D.ER 09:08 → D.MS 14:08
PROVIDERS: Family Medicine; ADMIT Family Medicine; ATTEND Family Medicine
DX: K52.9 Noninfective gastroenteritis and colitis, unspecified (principal); R40.2214 Coma scale, best verbal response, none, 24 hours or more after hospital admission; I26.99 Other pulmonary embolism without acute cor pulmonale; I63.9 Cerebral infarction, unspecified; I42.8 Other cardiomyopathies; R19.7 Diarrhea, unspecified; I25.10 Atherosclerotic heart disease of native coronary artery without angina pectoris; R11.2 Nausea with vomiting, unspecified; R50.9 Fever, unspecified; Z66 Do not resuscitate; R40.2354 Coma scale, best motor response, localizes pain, 24 hours or more after hospital admission; R40.2134 Coma scale, eyes open, to sound, 24 hours or more after hospital admission; R09.02 Hypoxemia; F03.90 Unspecified dementia, unspecified severity, without behavioral disturbance, psychotic disturbance, mood disturbance, and anxiety